=== PATIENT | female | born 1970 | race Caucasian/White ===

== ENCOUNTER 2021-03-21 13:28 | Observation (INO) | payer MEDICAID, OTHER ==
--- NOTE | 2021-03-21 13:32 | ERPHSYRPT ---
- History of Present Illness Time Seen by Provider: 03/21/21 13:32 Historian: patient, family Exam Limitations: no limitations Physician History: This a 50-year-old white female patient of Dr. Ranjith Joiner who presents with bilateral lower abdominal pain that began yesterday and worsened today. It was relatively sudden in onset. She has not really had diarrhea or vomiting. No other individuals in the family have similar symptoms. She has not had a fever. She denies chest pain. She denies shortness of breath. Patient has had a tubal ligation but no other intra-abdominal surgeries. Timing/Duration: yesterday Quality: cramping, sharpness Abdominal Pain Onset Location: RLQ, LLQ, suprapubic Pain Radiation: back Severity of Pain-Max: moderate Severity of Pain-Current: moderate Associated Symptoms: denies symptoms Previous symptoms: no prior history Allergies/Adverse Reactions: cephalexin monohydrate [From KeVidatronic] Allergy (Mild, Verified 03/21/21 13:53) Hives Home Medications: Loratadine 10 mg [Claritin 10 mg] 10 mg PO DAILY 02/04/16 [History] Hx Tetanus, Diphtheria Vaccination/Date Given: Yes (dec 18 2007) Hx Influenza Vaccination/Date Given: No Hx Pneumococcal Vaccination/Date Given: No Travel Risk - International Travel Have you traveled outside of the country in past 3 weeks: No - Coronavirus Screening Are you exhibiting any of the following symptoms?: No Close contact with a COVID-19 positive Pt in past 14-21 Days: No - Review of Systems Constitutional: No Symptoms Eyes: No Symptoms Ears, Nose, & Throat: No Symptoms Respiratory: No Symptoms Cardiac: No Symptoms Abdominal/Gastrointestinal: Abdominal Pain, No Nausea, No Vomiting, No Diarrhea, No Constipation Genitourinary Symptoms: No Symptoms Musculoskeletal: No Symptoms Skin: No Symptoms Neurological: No Symptoms Psychological: No Symptoms Endocrine: No Symptoms Hematologic/Lymphatic: No Symptoms Immunological/Allergic: No Symptoms All Other Systems: Reviewed and Negative - Past Medical History Pertinent Past Medical History: Yes Neurological History: Migraines ENT History: No Pertinent History Cardiac History: No Pertinent History Respiratory History: No Pertinent History Endocrine Medical History: No Pertinent History Musculoskeletal History: Osteoarthritis, Other GI Medical History: No Pertinent History History: No Pertinent History Psycho-Social History: No Pertinent History Female Reproductive Disorders: No Pertinent History Other Medical History: scoliosis - Past Surgical History Past Surgical History: Yes Neuro Surgical History: No Pertinent History Cardiac: No Pertinent History Respiratory: No Pertinent History Gastrointestinal: No Pertinent History Genitourinary: No Pertinent History Musculoskeletal: No Pertinent History Female Surgical History: Tubal Ligation - Social History Smoking Status: Current every day smoker How long have you smoked: 29 yrs Exposure to second hand smoke: Yes Drug Use: none Patient Lives Alone: No - Nursing Vital Signs Nursing Vital Signs: Initial Vital Signs Temperature 99.3 F 03/21/21 13:40 Pulse Rate 99 H 03/21/21 13:40 Respiratory Rate 20 03/21/21 13:40 Blood Pressure 141/78 03/21/21 13:40 O2 Sat by Pulse Oximetry 99 03/21/21 13:40 Pain Scale Pain Intensity 8 - Physical Exam General Appearance: mild distress (To moderate), alert, anxiety Eye Exam: PERRL/EOMI, eyes nml inspection Ears, Nose, Throat Exam: normal ENT inspection, moist mucous membranes Neck Exam: normal inspection, non-tender, supple, full range of motion Respiratory Exam: normal breath sounds, lungs clear, airway intact, No chest tenderness, No respiratory distress Cardiovascular Exam: regular rate/rhythm, normal heart sounds, normal peripheral pulses Gastrointestinal/Abdomen Exam: soft, normal bowel sounds, tenderness, guarding Pelvic Exam: not done Rectal Exam: not done Back Exam: normal inspection, normal range of motion, No CVA tenderness, No vertebral tenderness Extremity Exam: normal inspection, normal range of motion, pelvis stable Neurologic Exam: alert, oriented x 3, cooperative, director of institutional research II-XII nml as tested, normal mood/affect, nml cerebellar function, nml station & gait, sensation nml Skin Exam: normal color, warm, dry Lymphatic Exam: No adenopathy SpO2 Interpretation: normal O2 Delivery: Room Air - Course Nursing assessment & vital signs reviewed: Yes Ordered Tests: Active Orders 24 hr Category Date Time Status ABDOMEN AND PELVIS W/0 CONTRAS [CT] Stat Exams 03/21/21 14:08 Taken AMYLASE Stat Lab 03/21/21 14:00 Completed BLOOD CULTURE Stat Lab 03/21/21 14:45 Received CBC W DIFF Stat Lab 03/21/21 14:00 Completed CMP Stat Lab 03/21/21 14:00 Completed LIPASE Stat Lab 03/21/21 14:00 Completed Lactic Acid Stat Lab 03/21/21 13:46 Completed UA W/RFX UR CULTURE Stat Lab 03/21/21 13:46 Ordered Medication Summary Generic Name Dose Route Start Last Admin Trade Name Guillermina PRN Reason Stop Dose Admin Piperacillin Sod/Tazobactam 100 mls @ 200 mls/hr 03/21/21 15:22 Sod 3.375 gm/ Sodium Chloride IV 03/21/21 15:51 STAT ONE Discontinued Medications Generic Name Dose Route Start Last Admin Trade Name Guillermina PRN Reason Stop Dose Admin Hydromorphone HCl 1 mg 03/21/21 13:58 03/21/21 14:04 Hydromorphone 1 Mg/1ml Inj 1 Mg/Ml Syringe IV 03/21/21 13:59 1 mg STAT ONE Administration Hydromorphone HCl Confirm 03/21/21 13:59 Hydromorphone 1 Mg/1ml Inj 1 Mg/Ml Syringe Administered 03/21/21 14:00 Dose 1 mg .ROUTE .STK-MED ONE Hydromorphone HCl 1 mg 03/21/21 15:22 Hydromorphone 1 Mg/1ml Inj 1 Mg/Ml Syringe IV 03/21/21 15:23 STAT ONE Hydromorphone HCl Confirm 03/21/21 15:22 Hydromorphone 1 Mg/1ml Inj 1 Mg/Ml Syringe Administered 03/21/21 15:23 Dose 1 mg .ROUTE .STK-MED ONE Sodium Chloride 1,000 mls @ 999 mls/hr 03/21/21 13:58 03/21/21 14:04 Sodium Chloride 0.9% 1000 Ml IV 03/21/21 14:58 999 mls/hr .Q1H1M STA Administration Sodium Chloride Confirm 03/21/21 13:59 Sodium Chloride 0.9% 1000 Ml Administered 03/21/21 14:00 Dose 1,000 mls @ ud .ROUTE .STK-MED ONE Ondansetron HCl 4 mg 03/21/21 13:58 03/21/21 14:04 Ondansetron Hcl 4 Mg/2 Ml Vial IV 03/21/21 13:59 4 mg STAT ONE Administration Ondansetron HCl Confirm 03/21/21 13:59 Ondansetron Hcl 4 Mg/2 Ml Vial Administered 03/21/21 14:00 Dose 4 mg .ROUTE .STK-MED ONE Lab/Rad Data: Laboratory Result Diagrams 03/21/21 14:00 03/21/21 14:00 Laboratory Results 03/21/21 03/21/21 03/21/21 Range/Units 14:00 14:00 13:46 WBC 13.7 H (4.0-10.5) K/mm3 RBC 4.82 (4.1-5.4) M/mm3 Hgb 14.3 (12.0-16.0) gm/dl Hct 43.0 (35-47) % MCV 89.2 (78-100) fl MCH 29.7 (26-32) pg MCHC 33.3 (32-36) g/dl RDW 13.2 (11.5-14.0) % Plt Count 234 (150-450) K/mm3 MPV 11.8 H (7.5-11.0) fl Gran % 85.9 H (36.0-66.0) % Eos # (Auto) 0.03 (0-0.5) Absolute Lymphs (auto) 1.05 (1.0-4.6) Absolute Monos (auto) 0.85 (0.0-1.3) Lymphocytes % 7.6 L (24.0-44.0) % Monocytes % 6.2 (0.0-12.0) % Eosinophils % 0.2 (0.00-5.0) % Basophils % 0.1 (0.0-0.4) % Absolute Granulocytes 11.78 H (1.4-6.9) Basophils # 0.02 (0-0.4) Sodium 133 L (137-145) mmol/L Potassium 4.3 (3.5-5.1) mmol/L Chloride 104 (98-107) mmol/L Carbon Dioxide 20 L (22-30) mmol/L Anion Gap 13.0 (5-15) MEQ/L BUN 10 (7-17) mg/dL Creatinine 0.64 (0.52-1.04) mg/dL Estimated GFR > 60.0 ML/MIN Glucose 119 H (74-106) mg/dL Lactic Acid 1.1 (0.4-2.0) Calcium 9.3 (8.4-10.2) mg/dL Total Bilirubin 0.90 (0.2-1.3) mg/dL AST 21 (14-36) U/L ALT 18 (0-35) U/L Alkaline Phosphatase 101 (38-126) U/L Serum Total Protein 7.2 (6.3-8.2) g/dL Albumin 4.5 (3.5-5.0) g/dL Amylase 48 (30-110) U/L Lipase 44 (23-300) U/L - Progress Progress: pain not gone completely Progress Note: 03/21/21 15:27 CAT scan of the abdomen pelvis shows acute appendicitis with the appendix measuring approximately 12 mm in diameter. The appendix is filled with fluid. There is periappendiceal inflammation without abscess. There is cholelithiasis without acute cholecystitis. There is left nephrolithiasis without urinary tract obstruction. 03/21/21 15:33 Medical decision making: This patient has acute appendicitis. I spoke with Dr. Андрей Arshad, general surgeon, and reviewed the patient history, physical findings and results of the CAT scan. He states to go ahead and admit this patient to his service. We will obtain a Covid test prior to admission. Discussed with : Ruht Schmitz Counseled pt/family regarding: lab results, diagnosis, rad results - Departure Departure Disposition: Observation Clinical Impression: Acute appendicitis Condition: Stable Critical Care Time: No Referrals: LISHA CALLEJAS [Primary Care Provider] - Follow up/PCP as directed
[2021-03-21] MEDS ORDERED: Hydromorphone 1 mg/ml Injection IV ONE ×2 (13:58→15:22)
[2021-03-21] MEDS ORDERED: Sodium Chloride 0.9% 1000 ML 1,000 ML IV STA (13:58)
[2021-03-21] MEDS ORDERED: Zofran 4 MG/2 ML VIAL IV ONE (13:58)
[2021-03-21] MEDS ORDERED: Hydromorphone 1 mg/ml Injection ONE ×2 (13:59→15:22)
[2021-03-21] MEDS ORDERED: Sodium Chloride 0.9% 1000 ML 1,000 ML ONE (13:59)
[2021-03-21] MEDS ORDERED: Zofran 4 MG/2 ML VIAL ONE ×2 (13:59→17:57)
[2021-03-21 14:07] LABS: Absolute Neutrophil Ct (ANC) 11.78 (1.4-6.9); BASOPHIL % 0.1 % (0.0-0.4); Basophil (Absolute #) 0.02 (0-0.4); Eosinophil % 0.2 % (0.00-5.0); Eosinophil (Absolute #) 0.03 (0-0.5); Hemoglobin 14.3 gm/dl (12.0-16.0); Lymphocyte (Absolute #) 1.05 (1.0-4.6); Lymphocytes % 7.6 % (24.0-44.0); Mean Cell Volume 89.2 fl (78-100); Mean Corpuscular Hemoglobin 29.7 pg (26-32); Mean Corpuscular Hgb Concent. 33.3 g/dl (32-36); Mean Platelet Volume 11.8 fl (7.5-11.0); Monocyte (Absolute #) 0.85 (0.0-1.3); Monocytes % 6.2 % (0.0-12.0); Neutrophil % 85.9 % (36.0-66.0); Platelet Count 234 K/mm3 (150-450); Red Blood Count 4.82 M/mm3 (4.1-5.4); Red Cell Distribution Width 13.2 % (11.5-14.0); White Blood Count 13.7 K/mm3 (4.0-10.5)
[2021-03-21 14:29] LABS: ALBUMIN 4.5 g/dL (3.5-5.0); ALKALINE PHOSPHATASE 101 U/L (38-126); AMYLASE 48 U/L (30-110); BLOOD UREA NITROGEN 10 mg/dL (7-17); CHLORIDE 104 mmol/L (98-107); Calcium 9.3 mg/dL (8.4-10.2); Carbon Dioxide 20 mmol/L (22-30); Creatinine 1 0.64 mg/dL (0.52-1.04); EST GLOMERULAR FILTRATION RATE > 60.0 ML/MIN; Glucose 119 mg/dL (74-106); LIPASE 44 U/L (23-300); SGOT/AST 21 U/L (14-36); SGPT/ALT 18 U/L (0-35); SODIUM 133 mmol/L (137-145); Total Protein 7.2 g/dL (6.3-8.2)
[2021-03-21 14:30] LABS: Potassium 4.3 mmol/L (3.5-5.1)
[2021-03-21] MEDS ORDERED: Zosyn 3.375 GM Vial 3.375 GM in Sodium Chloride 100ML MINI-BAG PLUS 100 ML IV ONE (15:22)
[2021-03-21] MEDS ORDERED: Sodium Chloride 100ML MINI-BAG PLUS 100 ML IV ONE ×3 (15:25→21:35)
[2021-03-21] MEDS ORDERED: Zosyn 3.375 GM Vial IV ONE ×3 (15:25→21:35)
[2021-03-21 16:38] LABS: Appearance CLOUDY (CLEAR); Bacteria MANY /HPF (NEGATIVE); Bilirubin NEGATIVE (NEGATIVE); Blood NEGATIVE Ery/ul (0-5); Epithelial Cells FEW /HPF (FEW); Glucose NEGATIVE (NEGATIVE); Ketones TRACE (NEGATIVE); Leukocyte Esterase NEGATIVE (NEGATIVE); Mucus SLIGHT /HPF (NEGATIVE); Nitrite NEGATIVE (NEGATIVE); Protein,Urine Dip 100 (Negative); Urobilinogen 2 mg/dL (0-1)
[2021-03-21 17:21] LABS: INFLUENZA A NEGATIVE (NEGATIVE); INFLUENZA B NEGATIVE (NEGATIVE); RESPIRATORY SYNCTIAL VIRUS NEGATIVE (Negative); SARS-CoV-2 Xpert Express NEGATIVE (NEGATIVE)
[2021-03-21] MEDS ORDERED: Xylocaine-Mpf 2% 5 Ml Vial ONE (17:57)
[2021-03-21] MEDS ORDERED: Zemuron 100 MG/10 ML ONE (17:57)
[2021-03-21] MEDS ORDERED: TORAdol 30 mg Injection ONE (17:57)
[2021-03-21] MEDS ORDERED: Decadron 4 MG INJ ONE (17:57)
[2021-03-21] MEDS ORDERED: SUBLIMAZE 100 MCG/2 ML ONE (17:57)
[2021-03-21] MEDS ORDERED: BRIDION 200MG/2ML IV ONE (17:57)
[2021-03-21] MEDS ORDERED: DIPRIVAN 200 MG/20 ML IV ONE (17:57)
--- NOTE | 2021-03-21 19:14 | XRAY ---
Indication: Pain, nausea, vomiting, and bloating. Multiple contiguous axial images obtained through the abdomen and pelvis without contrast. Comparison: None Lung bases demonstrates mild pulmonary emphysema, minimal bibasilar fibrosis/scarring, 6 mm peripheral right lower lobe noncalcified nodule, and 4 mm left costophrenic angle noncalcified nodule. Heart not enlarged. Noncontrasted stomach and bowel loops appear nonobstructed. Appendix is prominent up to 11 mm diameter with mild periappendiceal stranding favoring acute appendicitis. No free fluid/air. Midabdomen demonstrates tiny mesenteric nodes with stranding favoring adenitis. Moderately distended gallbladder with at least 3 large gallstones, largest 2.8 cm. Nonobstructing 6 mm left renal calculus. Remaining liver, pancreas, spleen, adrenal glands, kidneys, ureters, bladder, and uterus are unremarkable for noncontrast exam. Minimal aortoiliac calcifications without AAA. Osseous structures intact with mild degenerative changes of the visualized thoracic spine. Impression: 1. CT findings favoring acute appendicitis. No complications. 2. Tiny mid abdomen mesenteric adenitis. 3. Distended gallbladder with gallstones. 4. Nonobstructing left renal micro-calculus. 5. Indeterminant tiny bibasilar noncalcified lung nodules. Outside comparison studies recommended if available. If not, CT chest recommended to establish Baseline with follow-up per Fleischner guidelines. Comment: Preliminary interpretation made by [facility]. No critical discrepancy.
[2021-03-21] MEDS ORDERED: Sodium Chloride 0.9% 1000 ML 1,000 ML IV SCH (19:53)
[2021-03-21] MEDS ORDERED: Zofran 4 MG/2 ML VIAL IV PRN (19:53)
[2021-03-21] MEDS ORDERED: Hydromorphone 1 mg/ml Injection IV PRN (19:53)
[2021-03-21] MEDS ORDERED: TYLENOL 325 MG PO PRN (20:11)
[2021-03-21] MEDS ORDERED: D5W/0.45NS W/ 20mEq KCl 1000 ML 1,000 ML IV SCH (20:30)
[2021-03-21] MEDS: NORCO 5/325 MG PO PRN (21:38)
[2021-03-21] MEDS: Zosyn 3.375 GM Vial 3.375 GM in Sodium Chloride 100ML MINI-BAG PLUS 100 ML IV SCH ×2 (21:40→22:32)
[2021-03-21] MEDS: MEFOXIN 1 Gm/ D5W 50 Ml** 1 G/50 ML ML IV SCH (21:57)
[2021-03-22] MEDS: NORCO 5/325 MG PO PRN ×2 (01:35→05:28)
[2021-03-22 04:45] VITALS: O2SAT 92
[2021-03-22] MEDS: MEFOXIN 1 Gm/ D5W 50 Ml** 1 G/50 ML ML IV SCH (05:49)
[2021-03-22] MEDS: Zosyn 3.375 GM Vial 3.375 GM in Sodium Chloride 100ML MINI-BAG PLUS 100 ML IV SCH (05:49)
[2021-03-22 06:53] LABS: ANION GAP 12.6 MEQ/L (5-15); BLOOD UREA NITROGEN 8 mg/dL (7-17); CHLORIDE 107 mmol/L (98-107); Calcium 8.9 mg/dL (8.4-10.2); Carbon Dioxide 21 mmol/L (22-30); Creatinine 1 0.77 mg/dL (0.52-1.04); EST GLOMERULAR FILTRATION RATE > 60.0 ML/MIN; Glucose 152 mg/dL (74-106); Potassium 4.4 mmol/L (3.5-5.1); SODIUM 136 mmol/L (137-145)
[2021-03-22 07:13] LABS: Hematocrit 39.2 % (35-47); Hemoglobin 12.6 gm/dl (12.0-16.0); Mean Cell Volume 91.2 fl (78-100); Mean Corpuscular Hemoglobin 29.3 pg (26-32); Mean Corpuscular Hgb Concent. 32.1 g/dl (32-36); Mean Platelet Volume 12.3 fl (7.5-11.0); Platelet Count 184 K/mm3 (150-450); Red Cell Distribution Width 13.1 % (11.5-14.0); White Blood Count 11.3 K/mm3 (4.0-10.5)
--- NOTE | 2021-03-22 08:20 | PCM.SSS ---
History of Present Illness - Chief Complaint Chief Complaint: appendectomy History of Present Illness: is a 50 year old female pt of mine from [facility] with seasonal allergies who was admitted through ER with acute appendicitis. WBC 13.7 with left shift and CT with acute appendicitis. She started having abd pain 2 days ago and yesterday it got much worse - 10/10 - and she was brought to ER by her spouse. She had vomiting x1. No temperature > 100. She had a laparoscopic cholecystectomy with Dr. Андрей Arshad with no complications. This morning her pain is 4/10. She is tolerating a regular house diet and would like to go home. Her IV infiltrated last night but she got two doses of cefoxetin and zosyn prior to that. I spoke with Dr. Arshad's nurse (he is in surgery) and he agreed that pt can go home without any antibiotics. F/u with me in 1 week. - Review of Systems Abdominal/Gastrointestinal: Abdominal Pain, Vomiting All Other Systems: Reviewed and Negative Medications & Allergies Home Medications: Home Medication List Loratadine 10 mg [Claritin 10 mg] 10 mg PO DAILY 02/04/16 [History Confirmed 03/21/21] Allergies/Adverse Reactions: Allergies Allergy/AdvReac Type Severity Reaction Status Date / Time cephalexin monohydrate Allergy Mild Hives Verified 03/21/21 13:53 [From Keflex] - Past Medical History Past Medical History: Yes Neurological History: Migraines ENT History: No Pertinent History Cardiac History: No Pertinent History Respiratory History: No Pertinent History Endocrine Medical History: No Pertinent History Musculoskelatal History: Fractures, Other GI Medical History: No Pertinent History History: No Pertinent History Pyscho-Social History: Other Reproductive Disorders: No Pertinent History Comment: scoliosis, seasonal affective disorder - Female History Hx Last Menstrual Period: tubal 1998 Are you now?: No - Past Surgical History Past Surgical History: Yes Neuro Surgical History: No Pertinent History Cardiac History: No Pertinent History Respiratory Surgery: No Pertinent History GI Surgical History: No Pertinent History Genitourinary Surgical Hx: No Pertinent History Musculskeletal Surgical Hx: No Pertinent History Female Surgical History: Tubal Ligation - Social History Smoking Status: Current every day smoker How long have you smoked: 34 Exposure to second hand smoke: Yes Alcohol: None Drug Use: none - Physical Exam Vital Signs: Vital Signs - 24 hr Temp Pulse Resp BP Pulse Ox 12/27/21 04:00 98.8 F 83 20 123/68 92 L 03/22/21 00:42 112/66 03/22/21 00:36 99.5 F 86 111/61 03/22/21 00:00 97.1 F 78 19 109/59 96 03/21/21 23:30 84 20 115/63 03/21/21 23:00 112/66 03/21/21 22:30 86 117/56 03/21/21 22:00 92 H 111/63 03/21/21 21:45 86 123/68 03/21/21 21:15 91 H 119/59 03/21/21 21:00 98.6 F 89 20 122/58 96 03/21/21 20:30 98.8 F 78 18 129/66 95 03/21/21 20:07 98.8 F 78 18 129/66 93 L 03/21/21 16:00 99.3 F 82 18 138/86 98 03/21/21 15:28 99.3 F 82 16 122/71 97 03/21/21 15:00 99.3 F 82 16 122/71 97 03/21/21 14:33 99.3 F 89 18 149/71 97 03/21/21 13:40 99.3 F 99 H 20 141/78 99 General Appearance: no apparent distress, alert Neurologic Exam: oriented x 3, cooperative Eye Exam: eyes nml inspection Ears, Nose, Throat Exam: moist mucous membranes Neck Exam: normal inspection, non-tender, No lymphadenopathy Respiratory Exam: normal breath sounds, lungs clear, No crackles/rales, No rhonchi, No wheezing Cardiovascular Exam: regular rate/rhythm, normal heart sounds, No murmur Gastrointestinal/Abdomen Exam: soft, normal bowel sounds, tenderness (mild diffuse), other (dressings are c/d/i), No distention, No mass, No guarding, No rebound Extremity Exam: normal inspection, No pedal edema, No swelling Skin Exam: normal color, warm, dry, No rash Results - Labs Lab/Micro Results: Lab Results-Last 24 Hours 03/21/21 03/21/21 03/21/21 Range/Units 13:46 13:46 14:00 WBC 13.7 H (4.0-10.5) K/mm3 RBC 4.82 (4.1-5.4) M/mm3 Hgb 14.3 (12.0-16.0) gm/dl Hct 43.0 (35-47) % MCV 89.2 (78-100) fl MCH 29.7 (26-32) pg MCHC 33.3 (32-36) g/dl RDW 13.2 (11.5-14.0) % Plt Count 234 (150-450) K/mm3 MPV 11.8 H (7.5-11.0) fl Gran % 85.9 H (36.0-66.0) % Eos # (Auto) 0.03 (0-0.5) Absolute Lymphs (auto) 1.05 (1.0-4.6) Absolute Monos (auto) 0.85 (0.0-1.3) Lymphocytes % 7.6 L (24.0-44.0) % Monocytes % 6.2 (0.0-12.0) % Eosinophils % 0.2 (0.00-5.0) % Basophils % 0.1 (0.0-0.4) % Absolute Granulocytes 11.78 H (1.4-6.9) Basophils # 0.02 (0-0.4) Sodium (137-145) mmol/L Potassium (3.5-5.1) mmol/L Chloride (98-107) mmol/L Carbon Dioxide (22-30) mmol/L Anion Gap (5-15) MEQ/L BUN (7-17) mg/dL Creatinine (0.52-1.04) mg/dL Estimated GFR ML/MIN Glucose (74-106) mg/dL Lactic Acid 1.1 (0.4-2.0) Calcium (8.4-10.2) mg/dL Total Bilirubin (0.2-1.3) mg/dL AST (14-36) U/L ALT (0-35) U/L Alkaline Phosphatase (38-126) U/L Serum Total Protein (6.3-8.2) g/dL Albumin (3.5-5.0) g/dL Amylase (30-110) U/L Lipase (23-300) U/L Urine Color YELLOW (YELLOW) Urine Appearance CLOUDY (CLEAR) Urine pH 7.0 (5-6) Ur Specific [place] 1.020 (1.005-1.025) Urine Protein 100 (Negative) Urine Ketones TRACE (NEGATIVE) Urine Blood NEGATIVE (0-5) Miko/ul Urine Nitrite NEGATIVE (NEGATIVE) Urine Bilirubin NEGATIVE (NEGATIVE) Urine Urobilinogen 2 (0-1) mg/dL Ur Leukocyte Esterase NEGATIVE (NEGATIVE) Urine WBC (Auto) 3-5 (0-5) /HPF Urine RBC (Auto) 3-5 (0-2) /HPF U Epithel Cells (Auto) FEW (FEW) /HPF Urine Bacteria (Auto) MANY (NEGATIVE) /HPF Urine Mucus (Auto) SLIGHT (NEGATIVE) /HPF Urine Culture Reflexed YES (NO) Urine Glucose NEGATIVE (NEGATIVE) mg/dL Influenza Type A Ag (NEGATIVE) Influenza Type B Ag (NEGATIVE) RSV (PCR) (Negative) SARS-CoV-2 (PCR) (NEGATIVE) 03/21/21 03/21/21 03/22/21 Range/Units 14:00 16:35 05:00 WBC 11.3 H (4.0-10.5) K/mm3 RBC 4.30 (4.1-5.4) M/mm3 Hgb 12.6 (12.0-16.0) gm/dl Hct 39.2 (35-47) % MCV 91.2 (78-100) fl MCH 29.3 (26-32) pg MCHC 32.1 (32-36) g/dl RDW 13.1 (11.5-14.0) % Plt Count 184 (150-450) K/mm3 MPV 12.3 H (7.5-11.0) fl Gran % (36.0-66.0) % Eos # (Auto) (0-0.5) Absolute Lymphs (auto) (1.0-4.6) Absolute Monos (auto) (0.0-1.3) Lymphocytes % (24.0-44.0) % Monocytes % (0.0-12.0) % Eosinophils % (0.00-5.0) % Basophils % (0.0-0.4) % Absolute Granulocytes (1.4-6.9) Basophils # (0-0.4) Sodium 133 L (137-145) mmol/L Potassium 4.3 (3.5-5.1) mmol/L Chloride 104 (98-107) mmol/L Carbon Dioxide 20 L (22-30) mmol/L Anion Gap 13.0 (5-15) MEQ/L BUN 10 (7-17) mg/dL Creatinine 0.64 (0.52-1.04) mg/dL Estimated GFR > 60.0 ML/MIN Glucose 119 H (74-106) mg/dL Lactic Acid (0.4-2.0) Calcium 9.3 (8.4-10.2) mg/dL Total Bilirubin 0.90 (0.2-1.3) mg/dL AST 21 (14-36) U/L ALT 18 (0-35) U/L Alkaline Phosphatase 101 (38-126) U/L Serum Total Protein 7.2 (6.3-8.2) g/dL Albumin 4.5 (3.5-5.0) g/dL Amylase 48 (30-110) U/L Lipase 44 (23-300) U/L Urine Color (YELLOW) Urine Appearance (CLEAR) Urine pH (5-6) Ur Specific [place] (1.005-1.025) Urine Protein (Negative) Urine Ketones (NEGATIVE) Urine Blood (0-5) Miko/ul Urine Nitrite (NEGATIVE) Urine Bilirubin (NEGATIVE) Urine Urobilinogen (0-1) mg/dL Ur Leukocyte Esterase (NEGATIVE) Urine WBC (Auto) (0-5) /HPF Urine RBC (Auto) (0-2) /HPF U Epithel Cells (Auto) (FEW) /HPF Urine Bacteria (Auto) (NEGATIVE) /HPF Urine Mucus (Auto) (NEGATIVE) /HPF Urine Culture Reflexed (NO) Urine Glucose (NEGATIVE) mg/dL Influenza Type A Ag NEGATIVE (NEGATIVE) Influenza Type B Ag NEGATIVE (NEGATIVE) RSV (PCR) NEGATIVE (Negative) SARS-CoV-2 (PCR) NEGATIVE (NEGATIVE) 03/22/21 Range/Units 05:00 WBC (4.0-10.5) K/mm3 RBC (4.1-5.4) M/mm3 Hgb (12.0-16.0) gm/dl Hct (35-47) % MCV (78-100) fl MCH (26-32) pg MCHC (32-36) g/dl RDW (11.5-14.0) % Plt Count (150-450) K/mm3 MPV (7.5-11.0) fl Gran % (36.0-66.0) % Eos # (Auto) (0-0.5) Absolute Lymphs (auto) (1.0-4.6) Absolute Monos (auto) (0.0-1.3) Lymphocytes % (24.0-44.0) % Monocytes % (0.0-12.0) % Eosinophils % (0.00-5.0) % Basophils % (0.0-0.4) % Absolute Granulocytes (1.4-6.9) Basophils # (0-0.4) Sodium 136 L (137-145) mmol/L Potassium 4.4 (3.5-5.1) mmol/L Chloride 107 (98-107) mmol/L Carbon Dioxide 21 L (22-30) mmol/L Anion Gap 12.6 (5-15) MEQ/L BUN 8 (7-17) mg/dL Creatinine 0.77 (0.52-1.04) mg/dL Estimated GFR > 60.0 ML/MIN Glucose 152 H (74-106) mg/dL Lactic Acid (0.4-2.0) Calcium 8.9 (8.4-10.2) mg/dL Total Bilirubin (0.2-1.3) mg/dL AST (14-36) U/L ALT (0-35) U/L Alkaline Phosphatase (38-126) U/L Serum Total Protein (6.3-8.2) g/dL Albumin (3.5-5.0) g/dL Amylase (30-110) U/L Lipase (23-300) U/L Urine Color (YELLOW) Urine Appearance (CLEAR) Urine pH (5-6) Ur Specific [place] (1.005-1.025) Urine Protein (Negative) Urine Ketones (NEGATIVE) Urine Blood (0-5) Miko/ul Urine Nitrite (NEGATIVE) Urine Bilirubin (NEGATIVE) Urine Urobilinogen (0-1) mg/dL Ur Leukocyte Esterase (NEGATIVE) Urine WBC (Auto) (0-5) /HPF Urine RBC (Auto) (0-2) /HPF U Epithel Cells (Auto) (FEW) /HPF Urine Bacteria (Auto) (NEGATIVE) /HPF Urine Mucus (Auto) (NEGATIVE) /HPF Urine Culture Reflexed (NO) Urine Glucose (NEGATIVE) mg/dL Influenza Type A Ag (NEGATIVE) Influenza Type B Ag (NEGATIVE) RSV (PCR) (Negative) SARS-CoV-2 (PCR) (NEGATIVE) - Radiology Impressions Radiology Exams & Impressions: Radiology Procedures Category Date Time Status ABDOMEN AND PELVIS W/0 CONTRAS [CT] Stat Exams 03/21/21 14:08 Completed Assessment/Plan (1) Acute appendicitis Current Visit: Yes Status: Acute Qualifiers: Acute appendicitis type: with localized peritonitis Appendicitis gangrene presence: without gangrene Appendicitis perforation presence: without perforation Appendicitis abscess presence: without abscess Qualified Code(s): K35.30 - Acute appendicitis with localized peritonitis, without perforation or gangrene Assessment & Plan: She is doing great. POD #1 - will have her f/u in 1 week. F/u with Dr. Arshad as directed. Code(s): K35.80 - UNSPECIFIED ACUTE APPENDICITIS (2) Cholelithiases Current Visit: Yes Status: Chronic Qualifiers: Cholelithiasis location: gallbladder Cholecystitis presence: without cholecystitis Biliary obstruction: without biliary obstruction Qualified Code(s): K80.20 - Calculus of gallbladder without cholecystitis without obstruction Assessment & Plan: Will d/w pt, will want to consider surgery if she has abd pain consistent with cholecystitis. (3) Nephrolithiasis Current Visit: Yes Status: Chronic Assessment & Plan: On CT - await final report to characterize - but non-obstructing. on L. Hospital Summary - Hospital Course Hospital Course: Pt is 50 yo female admitted through ER with appendicitis. Laparascopic cholecystectomy done and pt is tolerating regular diet and pain is controlled. Home today. - Vitals & Intake/Output Vital Signs: Vital Signs Temperature 98.8 F 03/22/21 04:00 Pulse Rate 83 03/22/21 04:00 Respiratory Rate 20 03/22/21 04:00 Blood Pressure 123/68 03/22/21 04:00 O2 Sat by Pulse Oximetry 92 L 03/22/21 04:00 Intake & Output: Intake & Output 03/19/21 03/20/21 03/21/21 03/22/21 11:59 11:59 11:59 11:59 Weight 115.6 kg - Lab Result Diagrams: 03/22/21 05:00 03/22/21 05:00 Lab Results-Last 24 Hrs: Lab Results-Last 24 Hours 03/21/21 03/21/21 03/21/21 Range/Units 13:46 13:46 14:00 WBC 13.7 H (4.0-10.5) K/mm3 RBC 4.82 (4.1-5.4) M/mm3 Hgb 14.3 (12.0-16.0) gm/dl Hct 43.0 (35-47) % MCV 89.2 (78-100) fl MCH 29.7 (26-32) pg MCHC 33.3 (32-36) g/dl RDW 13.2 (11.5-14.0) % Plt Count 234 (150-450) K/mm3 MPV 11.8 H (7.5-11.0) fl Gran % 85.9 H (36.0-66.0) % Eos # (Auto) 0.03 (0-0.5) Absolute Lymphs (auto) 1.05 (1.0-4.6) Absolute Monos (auto) 0.85 (0.0-1.3) Lymphocytes % 7.6 L (24.0-44.0) % Monocytes % 6.2 (0.0-12.0) % Eosinophils % 0.2 (0.00-5.0) % Basophils % 0.1 (0.0-0.4) % Absolute Granulocytes 11.78 H (1.4-6.9) Basophils # 0.02 (0-0.4) Sodium (137-145) mmol/L Potassium (3.5-5.1) mmol/L Chloride (98-107) mmol/L Carbon Dioxide (22-30) mmol/L Anion Gap (5-15) MEQ/L BUN (7-17) mg/dL Creatinine (0.52-1.04) mg/dL Estimated GFR ML/MIN Glucose (74-106) mg/dL Lactic Acid 1.1 (0.4-2.0) Calcium (8.4-10.2) mg/dL Total Bilirubin (0.2-1.3) mg/dL AST (14-36) U/L ALT (0-35) U/L Alkaline Phosphatase (38-126) U/L Serum Total Protein (6.3-8.2) g/dL Albumin (3.5-5.0) g/dL Amylase (30-110) U/L Lipase (23-300) U/L Urine Color YELLOW (YELLOW) Urine Appearance CLOUDY (CLEAR) Urine pH 7.0 (5-6) Ur Specific [place] 1.020 (1.005-1.025) Urine Protein 100 (Negative) Urine Ketones TRACE (NEGATIVE) Urine Blood NEGATIVE (0-5) Miko/ul Urine Nitrite NEGATIVE (NEGATIVE) Urine Bilirubin NEGATIVE (NEGATIVE) Urine Urobilinogen 2 (0-1) mg/dL Ur Leukocyte Esterase NEGATIVE (NEGATIVE) Urine WBC (Auto) 3-5 (0-5) /HPF Urine RBC (Auto) 3-5 (0-2) /HPF U Epithel Cells (Auto) FEW (FEW) /HPF Urine Bacteria (Auto) MANY (NEGATIVE) /HPF Urine Mucus (Auto) SLIGHT (NEGATIVE) /HPF Urine Culture Reflexed YES (NO) Urine Glucose NEGATIVE (NEGATIVE) mg/dL Influenza Type A Ag (NEGATIVE) Influenza Type B Ag (NEGATIVE) RSV (PCR) (Negative) SARS-CoV-2 (PCR) (NEGATIVE) 03/21/21 03/21/21 03/22/21 Range/Units 14:00 16:35 05:00 WBC 11.3 H (4.0-10.5) K/mm3 RBC 4.30 (4.1-5.4) M/mm3 Hgb 12.6 (12.0-16.0) gm/dl Hct 39.2 (35-47) % MCV 91.2 (78-100) fl MCH 29.3 (26-32) pg MCHC 32.1 (32-36) g/dl RDW 13.1 (11.5-14.0) % Plt Count 184 (150-450) K/mm3 MPV 12.3 H (7.5-11.0) fl Gran % (36.0-66.0) % Eos # (Auto) (0-0.5) Absolute Lymphs (auto) (1.0-4.6) Absolute Monos (auto) (0.0-1.3) Lymphocytes % (24.0-44.0) % Monocytes % (0.0-12.0) % Eosinophils % (0.00-5.0) % Basophils % (0.0-0.4) % Absolute Granulocytes (1.4-6.9) Basophils # (0-0.4) Sodium 133 L (137-145) mmol/L Potassium 4.3 (3.5-5.1) mmol/L Chloride 104 (98-107) mmol/L Carbon Dioxide 20 L (22-30) mmol/L Anion Gap 13.0 (5-15) MEQ/L BUN 10 (7-17) mg/dL Creatinine 0.64 (0.52-1.04) mg/dL Estimated GFR > 60.0 ML/MIN Glucose 119 H (74-106) mg/dL Lactic Acid (0.4-2.0) Calcium 9.3 (8.4-10.2) mg/dL Total Bilirubin 0.90 (0.2-1.3) mg/dL AST 21 (14-36) U/L ALT 18 (0-35) U/L Alkaline Phosphatase 101 (38-126) U/L Serum Total Protein 7.2 (6.3-8.2) g/dL Albumin 4.5 (3.5-5.0) g/dL Amylase 48 (30-110) U/L Lipase 44 (23-300) U/L Urine Color (YELLOW) Urine Appearance (CLEAR) Urine pH (5-6) Ur Specific [place] (1.005-1.025) Urine Protein (Negative) Urine Ketones (NEGATIVE) Urine Blood (0-5) Miko/ul Urine Nitrite (NEGATIVE) Urine Bilirubin (NEGATIVE) Urine Urobilinogen (0-1) mg/dL Ur Leukocyte Esterase (NEGATIVE) Urine WBC (Auto) (0-5) /HPF Urine RBC (Auto) (0-2) /HPF U Epithel Cells (Auto) (FEW) /HPF Urine Bacteria (Auto) (NEGATIVE) /HPF Urine Mucus (Auto) (NEGATIVE) /HPF Urine Culture Reflexed (NO) Urine Glucose (NEGATIVE) mg/dL Influenza Type A Ag NEGATIVE (NEGATIVE) Influenza Type B Ag NEGATIVE (NEGATIVE) RSV (PCR) NEGATIVE (Negative) SARS-CoV-2 (PCR) NEGATIVE (NEGATIVE) 03/22/21 Range/Units 05:00 WBC (4.0-10.5) K/mm3 RBC (4.1-5.4) M/mm3 Hgb (12.0-16.0) gm/dl Hct (35-47) % MCV (78-100) fl MCH (26-32) pg MCHC (32-36) g/dl RDW (11.5-14.0) % Plt Count (150-450) K/mm3 MPV (7.5-11.0) fl Gran % (36.0-66.0) % Eos # (Auto) (0-0.5) Absolute Lymphs (auto) (1.0-4.6) Absolute Monos (auto) (0.0-1.3) Lymphocytes % (24.0-44.0) % Monocytes % (0.0-12.0) % Eosinophils % (0.00-5.0) % Basophils % (0.0-0.4) % Absolute Granulocytes (1.4-6.9) Basophils # (0-0.4) Sodium 136 L (137-145) mmol/L Potassium 4.4 (3.5-5.1) mmol/L Chloride 107 (98-107) mmol/L Carbon Dioxide 21 L (22-30) mmol/L Anion Gap 12.6 (5-15) MEQ/L BUN 8 (7-17) mg/dL Creatinine 0.77 (0.52-1.04) mg/dL Estimated GFR > 60.0 ML/MIN Glucose 152 H (74-106) mg/dL Lactic Acid (0.4-2.0) Calcium 8.9 (8.4-10.2) mg/dL Total Bilirubin (0.2-1.3) mg/dL AST (14-36) U/L ALT (0-35) U/L Alkaline Phosphatase (38-126) U/L Serum Total Protein (6.3-8.2) g/dL Albumin (3.5-5.0) g/dL Amylase (30-110) U/L Lipase (23-300) U/L Urine Color (YELLOW) Urine Appearance (CLEAR) Urine pH (5-6) Ur Specific [place] (1.005-1.025) Urine Protein (Negative) Urine Ketones (NEGATIVE) Urine Blood (0-5) Miko/ul Urine Nitrite (NEGATIVE) Urine Bilirubin (NEGATIVE) Urine Urobilinogen (0-1) mg/dL Ur Leukocyte Esterase (NEGATIVE) Urine WBC (Auto) (0-5) /HPF Urine RBC (Auto) (0-2) /HPF U Epithel Cells (Auto) (FEW) /HPF Urine Bacteria (Auto) (NEGATIVE) /HPF Urine Mucus (Auto) (NEGATIVE) /HPF Urine Culture Reflexed (NO) Urine Glucose (NEGATIVE) mg/dL Influenza Type A Ag (NEGATIVE) Influenza Type B Ag (NEGATIVE) RSV (PCR) (Negative) SARS-CoV-2 (PCR) (NEGATIVE) - Radiology Exams Ordered Rad Exams-Entire Visit: Radiology Procedures Category Date Time Status ABDOMEN AND PELVIS W/0 CONTRAS [CT] Stat Exams 03/21/21 14:08 Completed - Discharge Disposition: Home, Self-Care Condition: Good Prescriptions: Continue Loratadine 10 mg [Claritin 10 mg] 10 mg PO DAILY Follow up with: LISHA CALLEJAS [Primary Care Provider] -
[2021-03-22 08:46] VITALS: BP 110/62; PULSE 80
[2021-03-22] MEDS ORDERED: CLARITIN 10 MG PO SCH (10:00)
[2021-03-22] MEDS ORDERED: ENOXAPARIN SODIUM SQ SCH (10:00)
--- NOTE | 2021-03-22 15:10 | HP ---
DATE OF SURGERY: 03/21/2021 HISTORY OF PRESENT ILLNESS: A 50-year-old with acute appendicitis admitted straight from the emergency room to the OR. She has had 24 hours of abdominal pain. She is wadded up in a ball. She is clearly having discomfort at this time. She has had nausea. No vomiting. Pain is substantial to the right lower quadrant. She has not had any previous episodes like this. PAST MEDICAL HISTORY: ALLERGIES: CEPHALEXAN MONOHYDRATE. MEDICATIONS: Loratadine. PAST SURGICAL HISTORY: None recent. SOCIAL HISTORY: Negative. FAMILY HISTORY: Negative. REVIEW OF SYSTEMS: CVS: Negative. PULMONARY: Negative. GI: Present illness. : Negative. PHYSICAL EXAMINATION: Mildly obese. Vital signs normal. CHEST: Clear. COR: Regular. ABDOMEN: The patient is staying in a position of flexion. Abdomen is tender. LAB DATA AND TESTS: White count elevated. CT positive. IMPRESSION: Acute appendicitis. PLAN: Laparoscopic appendectomy.
--- NOTE | 2021-03-22 15:22 | OP ---
SURGERY DATE/TIME: 03/21/20211813 PREOPERATIVE DIAGNOSIS: Acute appendicitis. POSTOPERATIVE DIAGNOSIS: Acute appendicitis. PROCEDURE: Laparoscopic appendectomy. SURGEON: Андрей Arshad M.D. ANESTHESIA: General endotracheal tube. COMPLICATIONS: None. CONDITION: Stable. INDICATION: A patient with clinical and CT proven appendicitis. DESCRIPTION OF PROCEDURE: Taken to surgery. General anesthetic. Routine prep and drape. She had a previous tubal ligation. Veress needle was inserted here. Insufflation pressure 14. A build in spot in right upper quadrant with a 5 port inserted nicely. There was a little bit of omentum stuck on the umbilicus but no bowel. A 12 port was placed for visualization. A 5 was placed right lower quadrant. The cecum itself was not mobile. The uterus was satisfactory. The right tubal ligation uterine end was visible. The appendix was almost laying on it. Half of appendix was off the tip. The base was seen over in the right lower quadrant. The ports were obtained and sort of buried down against common iliac artery and ureter. The base was taken. The tip was mobilized with LigaSure. At this time the mesoappendix was able to be taken and a little distal with the stapler. Appendix was taken with the LigaSure. Base already been taken off with stapler and looked excellent. No violation occurred. Placed in a condom bag and removed. Field was totally dry. Hole closure device was used with 0 Vicryl. Skin closed with 4-0 Vicryl, Steri-Strips. The patient tolerated the procedure satisfactorily. No family.
== END 2021-03-22 09:53 | disposition home or self-care (01) ==
LOC: ED 13:28 → MED SURG 19:51
PROVIDERS: ADMIT Surgery; ATTEND Family Medicine
DX: K35.30 Acute appendicitis with localized peritonitis, without perforation or gangrene (principal); K80.20 Calculus of gallbladder without cholecystitis without obstruction; N20.0 Calculus of kidney; F17.200 Nicotine dependence, unspecified, uncomplicated; Z79.899 Other long term (current) drug therapy; Z20.828 Contact with and (suspected) exposure to other viral communicable diseases
CPT/HCPCS: 0241U; 36415; 44970; 74176; 80048; 80053; 81001; 82150; 83605; 83690; 85025; 85027; 87040; 87086; 96374; 96375; 96376; 99284; G0378; J0694; J1100; J1170; J1885; J2405; J2704; J3010; A9270-GY

== ENCOUNTER 2022-06-30 01:51 | Emergency (ER) | payer MEDICAID ==
[2022-06-30] MEDS ORDERED: Zofran 4 MG/2 ML VIAL IV ONE ×2 (02:19→04:02)
[2022-06-30] MEDS ORDERED: MORPHINE SULFATE 4 MG INJ IV ONE (02:19)
[2022-06-30] MEDS ORDERED: Sodium Chloride 0.9% 1000 ML 1,000 ML ONE (02:23)
[2022-06-30] MEDS ORDERED: Zofran 4 MG/2 ML VIAL ONE ×2 (02:23→04:13)
[2022-06-30] MEDS ORDERED: MORPHINE SULFATE 4 MG INJ ONE (02:23)
[2022-06-30 02:28] VITALS: O2SAT 98
[2022-06-30 02:29] LABS: Absolute Neutrophil Ct (ANC) 6.21 x10^3/uL (1.4-6.9); BASOPHIL % 0.5 % (0.0-0.4); Basophil (Absolute #) 0.04 x10^3/uL (0-0.4); Eosinophil (Absolute #) 0.17 x10^3/uL (0-0.5); Hematocrit 39.7 % (35-47); Hemoglobin 12.9 g/dL (12.0-16.0); IMMATURE GRAN # 0.04 x10^3u/L (0.00-0.03); IMMATURE GRAN % 0.5 % (0.00-0.4); Lymphocyte (Absolute #) 1.51 x10^3/uL (1.0-4.6); Lymphocytes % 17.6 % (24.0-44.0); Mean Cell Volume 89.4 fL (78-100); Mean Corpuscular Hemoglobin 29.1 pg (26-32); Mean Corpuscular Hgb Concent. 32.5 g/dL (32-36); Mean Platelet Volume 11.4 fL (7.5-11.0); Neutrophil % 72.4 % (36.0-66.0); Platelet Count 226 x10^3/uL (150-450); Red Blood Count 4.44 x10^6/uL (4.1-5.4); Red Cell Distribution Width 12.8 % (11.5-14.0); White Blood Count 8.6 x10^3/uL (4.0-10.5)
[2022-06-30] MEDS ORDERED: Sodium Chloride 0.9% 1000 ML 1,000 ML IV SCH (02:30)
[2022-06-30 02:42] LABS: ALBUMIN 4.3 g/dL (3.5-5.0); ALKALINE PHOSPHATASE 102 U/L (38-126); ANION GAP 13.7 MEQ/L (5-15); BLOOD UREA NITROGEN 14 mg/dL (7-17); CHLORIDE 106 mmol/L (98-107); Carbon Dioxide 24 mmol/L (22-30); Creatinine 1 0.74 mg/dL (0.52-1.04); EST GLOMERULAR FILTRATION RATE > 60.0 ML/MIN; Glucose 138 mg/dL (74-106); Potassium 4.2 mmol/L (3.5-5.1); SGOT/AST 34 U/L (14-36); SGPT/ALT 38 U/L (0-35); SODIUM 140 mmol/L (137-145); Total Protein 7.2 g/dL (6.3-8.2)
--- NOTE | 2022-06-30 02:46 | ERPHSYRPT ---
- History of Present Illness Time Seen by Provider: 06/30/22 02:34 Historian: patient Exam Limitations: no limitations Patient Subjective Stated Complaint: pt states when she laid down to go to bed tonight she began having pain in her epigastric area. pain got worse and pt states she has pain in her back and around her ribs now. rates pain 9/10 Triage Nursing Assessment: pt alert and oriented, answers questions approp. pt back to room per wheelchair and transfers to stretcher with assist of 1. respirations nonlabored. skin warm and dry. heart rate 94 sinus rhythm. Physician History: Patient is a 51-year-old female presents to our ED for evaluation of epigastric and right upper quadrant pain. Patient has a history of cholelithiasis. Patient states she had a fatty meal this evening prior to going to bed. Malika ent's pain started while in bed. Pain described as an ache that is localized to the right upper quadrant however she occasionally feels shooting sensation across her flank into her back area. No trauma. No fever. No nausea vomiting or diaphoresis. Symptoms are moderate in intensity. Patient voices no other complaints or concerns at this time. Portions of this note were created with voice recognition technology. There may be grammatical, spelling, punctuation or sound alike errors Timing/Duration: today Activities at Onset: none Quality: aching Abdominal Pain Onset Location: RUQ Pain Radiation: flank Severity of Pain-Max: moderate Severity of Pain-Current: mild Modifying Factors: Improves With: nothing Associated Symptoms: denies symptoms Previous symptoms: no prior history Allergies/Adverse Reactions: cephalexin monohydrate [From Keflex] Allergy (Mild, Verified 06/30/22 02:36) Hives Home Medications: Loratadine 10 mg [Claritin 10 mg] 10 mg PO DAILY 02/04/16 [History] Hx Tetanus, Diphtheria Vaccination/Date Given: Yes Hx Influenza Vaccination/Date Given: No Hx Pneumococcal Vaccination/Date Given: No Immunizations Up to Date: Yes Travel Risk - International Travel Have you traveled outside of the country in past 3 weeks: No - Coronavirus Screening Are you exhibiting any of the following symptoms?: No Close contact with a COVID-19 positive Pt in past 14-21 Days: No - Vaccine Status Have you recieved a Covid-19 vaccination: No - Review of Systems Constitutional: No Symptoms, No Fever, No Chills Eyes: No Symptoms Ears, Nose, & Throat: No Symptoms Respiratory: No Symptoms, No Cough, No Dyspnea Cardiac: No Symptoms, No Chest Pain, No Edema, No Syncope Abdominal/Gastrointestinal: No Symptoms, No Abdominal Pain, No Nausea, No Vomiting, No Diarrhea Genitourinary Symptoms: No Symptoms, No Dysuria Musculoskeletal: No Symptoms, No Back Pain, No Neck Pain Skin: No Symptoms, No Rash Neurological: No Symptoms, No Dizziness, No Focal Weakness, No Sensory Changes Psychological: No Symptoms Endocrine: No Symptoms Hematologic/Lymphatic: No Symptoms Immunological/Allergic: No Symptoms All Other Systems: Reviewed and Negative - Past Medical History Pertinent Past Medical History: Yes Neurological History: Migraines ENT History: No Pertinent History Cardiac History: Congestive Heart Failure, Hypertension Respiratory History: No Pertinent History Endocrine Medical History: No Pertinent History Musculoskeletal History: Fractures, Other GI Medical History: No Pertinent History History: No Pertinent History Psycho-Social History: Other Female Reproductive Disorders: No Pertinent History Other Medical History: scoliosis, seasonal affective disorder - Past Surgical History Past Surgical History: Yes Neuro Surgical History: No Pertinent History Cardiac: No Pertinent History Respiratory: No Pertinent History Gastrointestinal: Appendectomy Genitourinary: No Pertinent History Musculoskeletal: No Pertinent History Female Surgical History: Tubal Ligation - Social History Smoking Status: Former smoker How long have you smoked: 34 Exposure to second hand smoke: No Drug Use: none Patient Lives Alone: No - Female History Hx Now: No - Nursing Vital Signs Nursing Vital Signs: Initial Vital Signs Temperature 98.7 F 06/30/22 01:59 Pulse Rate 90 06/30/22 01:59 Respiratory Rate 20 06/30/22 01:59 Blood Pressure 131/102 06/30/22 01:59 O2 Sat by Pulse Oximetry 99 06/30/22 01:59 Pain Scale Pain Intensity 2 - Physical Exam General Appearance: no apparent distress, alert Eye Exam: PERRL/EOMI, eyes nml inspection Ears, Nose, Throat Exam: normal ENT inspection, pharynx normal, moist mucous membranes Neck Exam: normal inspection, non-tender, supple, full range of motion Respiratory Exam: normal breath sounds, lungs clear, airway intact, No respiratory distress Cardiovascular Exam: regular rate/rhythm, normal heart sounds, normal peripheral pulses Gastrointestinal/Abdomen Exam: soft, No tenderness, No mass Back Exam: normal inspection, normal range of motion, No CVA tenderness, No vertebral tenderness Extremity Exam: normal inspection, normal range of motion, pelvis stable Neurologic Exam: alert, oriented x 3, cooperative, normal mood/affect, nml cerebellar function, sensation nml, No motor deficits Skin Exam: normal color, warm, dry Lymphatic Exam: No adenopathy SpO2 Interpretation: normal SpO2: 98 O2 Delivery: Room Air - Course Nursing assessment & vital signs reviewed: Yes EKG Interpreted by Me: RATE (90), Sinus Rhythm, NORMAL AXIS, NORMAL INTERVALS - CT Exams Abdomen/Pelvis CT Interpretation: Tele-radiologist Report (Lung nodule cholelithiasis, right adrenal gland nodule, nephrolithiasis, hydropic gallbladder,) Ordered Tests: Active Orders 24 hr Category Date Time Status Operator Electronic Warfare STAT Care 06/30/22 02:17 Active EKG-ER Only STAT Care 06/30/22 02:17 Active IV Insertion STAT Care 06/30/22 02:17 Active Pulse Oximetry (ED) STAT Care 06/30/22 02:17 Active ABDOMEN AND PELVIS W/0 CONTRAS [CT] Stat Exams 06/30/22 02:18 Completed CBC W DIFF Stat Lab 06/30/22 02:26 Completed CMP Stat Lab 06/30/22 02:26 Completed NT PRO BNPII Stat Lab 06/30/22 02:26 Completed TROPONIN Q4H Lab 06/30/22 02:26 Completed TROPONIN Q4H Lab 06/30/22 06:30 Ordered TROPONIN Q4H Lab 06/30/22 10:30 Ordered Medication Summary Generic Name Dose Route Start Last Admin Trade Name Freq PRN Reason Stop Dose Admin Hydrocodone Bitart/Acetaminophen 4 tab 06/30/22 04:35 Hydrocodone/Apap 5/325 1 Tab Tablet PO 06/30/22 04:36 SENT HOME W/ PATIENT ONE Sodium Chloride 1,000 mls @ 100 mls/hr 06/30/22 02:30 06/30/22 02:26 Sodium Chloride 0.9% 1000 Ml IV 07/30/22 02:29 100 mls/hr .Q10H ERIN Administration Discontinued Medications Generic Name Dose Route Start Last Admin Trade Name Freq PRN Reason Stop Dose Admin Hydromorphone HCl 0.5 mg 06/30/22 02:56 06/30/22 03:04 Hydromorphone 1 Mg/1ml Inj 1 Mg/Ml Syringe IV 06/30/22 02:57 0.5 mg STAT ONE Administration Hydromorphone HCl Confirm 06/30/22 02:59 Hydromorphone 1 Mg/1ml Inj 1 Mg/Ml Syringe Administered 06/30/22 03:00 Dose 1 mg .ROUTE .STK-MED ONE Morphine Sulfate 4 mg 06/30/22 02:19 06/30/22 02:27 Morphine Sulfate 4 Mg/Ml Injection IV 06/30/22 02:20 4 mg STAT ONE Administration Morphine Sulfate Confirm 06/30/22 02:23 Morphine Sulfate 4 Mg/Ml Injection Administered 06/30/22 02:24 Dose 4 mg .ROUTE .STK-MED ONE Ondansetron HCl 4 mg 06/30/22 02:19 06/30/22 02:27 Ondansetron Hcl 4 Mg/2 Ml Vial IV 06/30/22 02:20 4 mg STAT ONE Administration Ondansetron HCl Confirm 06/30/22 02:23 Ondansetron Hcl 4 Mg/2 Ml Vial Administered 06/30/22 02:24 Dose 4 mg .ROUTE .STK-MED ONE Ondansetron HCl 4 mg 06/30/22 04:02 06/30/22 04:14 Ondansetron Hcl 4 Mg/2 Ml Vial IV 06/30/22 04:03 4 mg STAT ONE Administration Ondansetron HCl Confirm 06/30/22 04:13 Ondansetron Hcl 4 Mg/2 Ml Vial Administered 06/30/22 04:14 Dose 4 mg .ROUTE .STK-MED ONE Lab/Rad Data: Laboratory Result Diagrams 06/30/22 02:26 06/30/22 02:26 Laboratory Results 06/30/22 06/30/22 06/30/22 Range/Units 03:01 02:26 02:26 WBC (4.0-10.5) x10^3/uL RBC (4.1-5.4) x10^6/uL Hgb (12.0-16.0) g/dL Hct (35-47) % MCV (78-100) fL MCH (26-32) pg MCHC (32-36) g/dL RDW (11.5-14.0) % Plt Count (150-450) x10^3/uL MPV (7.5-11.0) fL Gran % (36.0-66.0) % Immature Gran % (Auto) (0.00-0.4) % Nucleat RBC Rel Count (0.00-0.1) % Eos # (Auto) (0-0.5) x10^3/uL Immature Gran # (Auto) (0.00-0.03) x10^3u/L Absolute Lymphs (auto) (1.0-4.6) x10^3/uL Absolute Monos (auto) (0.0-1.3) x10^3/uL Absolute Nucleated RBC (0.00-0.01) x10^3u/L Lymphocytes % (24.0-44.0) % Monocytes % (0.0-12.0) % Eosinophils % (0.00-5.0) % Basophils % (0.0-0.4) % Absolute Granulocytes (1.4-6.9) x10^3/uL Basophils # (0-0.4) x10^3/uL Sodium 140 (137-145) mmol/L Potassium 4.2 (3.5-5.1) mmol/L Chloride 106 (98-107) mmol/L Carbon Dioxide 24 (22-30) mmol/L Anion Gap 13.7 (5-15) MEQ/L BUN 14 (7-17) mg/dL Creatinine 0.74 (0.52-1.04) mg/dL Estimated GFR > 60.0 ML/MIN Glucose 138 H (74-106) mg/dL Calcium 9.0 (8.4-10.2) mg/dL Total Bilirubin 0.40 (0.2-1.3) mg/dL AST 34 (14-36) U/L ALT 38 H (0-35) U/L Alkaline Phosphatase 102 (38-126) U/L Troponin I < 0.012 (0.000-0.034) ng/mL NT-Pro-B Natriuret Pep 754 (<300) pg/mL Serum Total Protein 7.2 (6.3-8.2) g/dL Albumin 4.3 (3.5-5.0) g/dL Influenza Type A Ag NEGATIVE (NEGATIVE) Influenza Type B Ag NEGATIVE (NEGATIVE) RSV (PCR) NEGATIVE (NEGATIVE) SARS-CoV-2 (PCR) NEGATIVE (NEGATIVE) 06/30/22 Range/Units 02:26 WBC 8.6 (4.0-10.5) x10^3/uL RBC 4.44 (4.1-5.4) x10^6/uL Hgb 12.9 (12.0-16.0) g/dL Hct 39.7 (35-47) % MCV 89.4 (78-100) fL MCH 29.1 (26-32) pg MCHC 32.5 (32-36) g/dL RDW 12.8 (11.5-14.0) % Plt Count 226 (150-450) x10^3/uL MPV 11.4 H (7.5-11.0) fL Gran % 72.4 H (36.0-66.0) % Immature Gran % (Auto) 0.5 H (0.00-0.4) % Nucleat RBC Rel Count 0.0 (0.00-0.1) % Eos # (Auto) 0.17 (0-0.5) x10^3/uL Immature Gran # (Auto) 0.04 H (0.00-0.03) x10^3u/L Absolute Lymphs (auto) 1.51 (1.0-4.6) x10^3/uL Absolute Monos (auto) 0.60 (0.0-1.3) x10^3/uL Absolute Nucleated RBC 0.00 (0.00-0.01) x10^3u/L Lymphocytes % 17.6 L (24.0-44.0) % Monocytes % 7.0 (0.0-12.0) % Eosinophils % 2.0 (0.00-5.0) % Basophils % 0.5 (0.0-0.4) % Absolute Granulocytes 6.21 (1.4-6.9) x10^3/uL Basophils # 0.04 (0-0.4) x10^3/uL Sodium (137-145) mmol/L Potassium (3.5-5.1) mmol/L Chloride (98-107) mmol/L Carbon Dioxide (22-30) mmol/L Anion Gap (5-15) MEQ/L BUN (7-17) mg/dL Creatinine (0.52-1.04) mg/dL Estimated GFR ML/MIN Glucose (74-106) mg/dL Calcium (8.4-10.2) mg/dL Total Bilirubin (0.2-1.3) mg/dL AST (14-36) U/L ALT (0-35) U/L Alkaline Phosphatase (38-126) U/L Troponin I (0.000-0.034) ng/mL NT-Pro-B Natriuret Pep (<300) pg/mL Serum Total Protein (6.3-8.2) g/dL Albumin (3.5-5.0) g/dL Influenza Type A Ag (NEGATIVE) Influenza Type B Ag (NEGATIVE) RSV (PCR) (NEGATIVE) SARS-CoV-2 (PCR) (NEGATIVE) - Progress Progress: improved Progress Note: Patient is a 51-year-old female presents to our ED for evaluation of right upper quadrant pain. Patient has a history of known cholelithiasis. Physical exam reveals tenderness right upper quadrant. Testing ordered include EKG, CT abdomen pelvis, CBC, CMP, COVID testing, BNP, troponin. Work-up essentially nonremarkable. CT abdomen pelvis reveals a known right upper quadrant cholelithiasis. No evidence of cholecystitis per CT abdomen pelvis. Patient received initial dose of morphine for pain control. Patient later received a dose of Dilaudid for pain control. Normal saline infused. Zofran x2 administered. Patient now resting comfortably. Pain well controlled. A right upper quadrant ultrasound ordered for this morning. Results to be forwarded to Dr. Kennedy's office. Patient's presenting problem is acute. Complexity of problem addressed is moderate, acute complicated with nausea and vomiting. No critical care time. Complexity of data reviewed and analyzed is moderate. Test ordered. Test reviewed. Patient served as independent historian. Dr. Hill independently reviewed the EKG. Risk of complication and or risk morbidity/mortality of patient management is high. Patient received IV controlled medications for pain control. We will discharge patient home. Patient will obtain a outpatient right upper quadrant ultrasound to be performed today at 11 AM. Patient agrees to follow-up accordingly. She voices no other complaints or concerns at this time. Vital stable. Time spent to discharge patient is approximately 15 minutes. Discharge diagnosis is right upper quadrant pain, biliary colic, cholelithiasis, hydrops gallbladder Portions of this note were created with voice recognition technology. There may be grammatical, spelling, punctuation or sound alike errors Case discussed with Dr. Salmon who advises us to complete the ultrasound today 11. Patient then to call Dr. Arshad's office for follow-up. Dr. Lay says he has office today in [place]. He cannot see patient today if she is unable to see Dr. Arshad. 06/30/22 04:08 06/30/22 04:24 A prescription for [place] was forwarded to patient's pharmacy. A prescription for Zofran was forwarded to patient's pharmacy. 4 tabs of [place] fives was provided to patient directly from the ER for pain control upon discharge home. 06/30/22 04:[address] Malathi Will see patient in: office Counseled pt/family regarding: lab results, diagnosis, need for follow-up, rad results - Departure Departure Disposition: Home Clinical Impression: Lung nodule, Cholelithiasis, Adrenal gland nodule, Nephrolithiasis, Hydropic gallbladder Condition: Stable Critical Care Time: No Referrals: LISHA CALLEJAS [Primary Care Provider] - Follow up/PCP as directed Instructions: Gallstones (DC) Additional Instructions: Discharge/Care Plan Call Dr Arshad's office today to make an appointment- [phone]. Your ultrasound is scheduled for 11:30. Please be here at 1100 to check in. Nothing to eat or drink until after ultrasound is done. TAMIE KENNEDY was seen on 06/30/22 in the Emergency Room. The patient was counseled regarding Diagnosis,Lab results, Imaging studies, need for follow up and when to return to the Emergency Room. Prescriptions given: Discharge Note I have spoken with the patient and/or caregivers. I have explained the patient's condition, diagnosis and treatment plan based on the information available to me at this time. I have answered the patient's and/or caregiver's questions and addressed any concerns. The patient and/or caregivers have as good understanding of the patient's diagnosis, condition and treatment plan as can be expected at this point. The vital signs have been stable. The patient's condition is stable and appropriate for discharge from the emergency department. The patient will pursue further outpatient evaluation with the primary care physician or other designated or consulting physician as outlined in the discharge instructions. The patient and/or caregivers are agreeable to this plan of care and follow-up instructions have been explained in detail. The patient and/or caregivers have received these instruction. The patient/and or caregivers are aware that any significant change in condition or worsening of symptoms should prompt an immediate return to this or the closest emergency department or call 911. Prescriptions: Hydrocodone/APAP 5/325 [[place] 5/325 mg] 1 each PO Q6H PRN PRN 3 Days #10 tablet MDD 4 PRN Reason: Pain Ondansetron ODT 4 MG [Zofran Odt 4 mg] 4 mg PO Q6H PRN PRN #10 tablet PRN Reason: Vomiting
[2022-06-30 02:53] LABS: NT PRO BNPII 754 pg/mL (<300); TROPONIN < 0.012 ng/mL (0.000-0.034)
[2022-06-30] MEDS ORDERED: Hydromorphone 1 mg/ml Injection IV ONE (02:56)
[2022-06-30] MEDS ORDERED: Hydromorphone 1 mg/ml Injection ONE (02:59)
[2022-06-30 03:39] LABS: INFLUENZA A NEGATIVE (NEGATIVE); INFLUENZA B NEGATIVE (NEGATIVE); RESPIRATORY SYNCTIAL VIRUS NEGATIVE (NEGATIVE); SARS-CoV-2 Xpert Express NEGATIVE (NEGATIVE)
--- NOTE | 2022-06-30 03:51 | XRAY ---
CLINICAL HISTORY:Rt. UQ Pain. h/o gallstones. h/o appendectomy & tubal ligation. COMPARISON:None. TECHNIQUES:Multiple axial CT images were obtained through the abdomen and pelvis with coronal and sagittal reformat images without IV contrast material. Images were reviewed in parenchymal and bone window settings. CTDI: 16.91 mGy, DLP: 916.59 mGy.com FINDINGS: (Parenchymal organ evaluation is suboptimal within the limitation of non-contrast study):. The visualized portions of the lung areas: There is 0.65 cm nodule in the posterior segment of the right lower lobe. The visualized portion of the heart is normal in size without pericardial effusion. The abdominal aorta demonstrates no evidence of focal aneurysmal dilatation or dissection. The liver is normal in size and contour. The attenuation of liver parenchyma is normal. No focal parenchymal lesions and no evidence of parenchymal infiltration. No intrahepatic ductal dilatation is seen. The gallbladder measures 13 x 4.2 x 3.8 cm which is hydropic. There are 3 cm, 2.8 cm, and 2.7 cm stones in the gallbladder. No sign of cholecystitis. The common bile duct is normal in appearance. The spleen and pancreas are normal contour and attenuation characteristics without focal parenchymal lesions. The left adrenal gland is normal in size and no mass lesion is detected. There is a 1.4 x 1.1 cm nodular lesion in the right adrenal gland. The right kidney is normal in size, shape, and configuration. There is no evidence of renal mass. There is no hydronephrosis or munir-nephric stranding visualized. The right ureter is normal in course and caliber, without any filling defects. There is 0.12 cm, non-obstructing stone in the right kidney. The left kidney is normal in size, shape, and configuration. There is no evidence of renal mass. There is no hydronephrosis or munir-nephric stranding visualized. The left ureter is normal in course and caliber, without any filling defects. There is 0.7 cm non obstructing stone in the left kidney. The urinary bladder is unremarkable. Uterus is normal. No adnexal mass is detected. Esophagogastric junction and stomach are normal. The colon and the small bowel loops are normal in appearance and without wall thickening or inflammatory change. No sign of appendicitis. No intraperitoneal free air or fluid is visualized. No pathologic lymphadenopathy is seen. The bones and soft tissues are unremarkable. IMPRESSION: 1. Cholecystolithiasis without sign of cholecystitis. 2. Hydropic gallbladder. 3. Bilateral nephrolithiasis. 0.12 cm on the right and 0.7 cm on the left, non-obstructing. 4. 0.65 cm nodule in the included right lung. Please correlate clinically. 5. 1.4 x 1.1 cm right adrenal gland nodular lesion. Please evaluate clinically. Electronically Signed by: Christine Gutierrez MD. (06/30/2022 02:43:23 CUSTOMER SERVICE ADVISOR)
[2022-06-30 04:19] VITALS: BP 119/70; PULSE 71
[2022-06-30] MEDS ORDERED: NORCO 5/325 MG PO ONE (04:35)
[2022-06-30] MEDS ORDERED: NORCO 5/325 MG ONE (04:38)
== END 2022-06-30 04:45 | disposition home or self-care (01) ==
LOC: ED 01:51
DX: K80.20 Calculus of gallbladder without cholecystitis without obstruction (principal); R91.1 Solitary pulmonary nodule; E27.8 Other specified disorders of adrenal gland; N20.0 Calculus of kidney; K82.1 Hydrops of gallbladder; R10.11 Right upper quadrant pain; I11.0 Hypertensive heart disease with heart failure; I50.9 Heart failure, unspecified; Z79.891 Long term (current) use of opiate analgesic; Z28.310 Unvaccinated for COVID-19
CPT/HCPCS: 0241U; 36000; 36415; 74176; 80053; 83880; 84484; 85025; 93005; 93041; 94760; 96374; 96375; 96376; 99284; J1170; J2270; J2405; A9270-GY

== ENCOUNTER 2022-07-04 01:56 | Observation (INO) | payer MEDICAID ==
[2022-07-04] MEDS ORDERED: Hydromorphone 1 mg/ml Injection IV ONE (02:59)
[2022-07-04] MEDS ORDERED: Compazine 10 MG/2 ML IV ONE (02:59)
--- NOTE | 2022-07-04 03:01 | ERPHSYRPT ---
- History of Present Illness Time Seen by Provider: 07/04/22 02:54 Historian: patient Exam Limitations: no limitations Patient Subjective Stated Complaint: pt states there is something really wrong. I am suppose to meet with the surgeon tomorrow but the pain is so bad. Triage Nursing Assessment: pt ambulated into the er; pt is axo x4; c/o RUQ; no respiratory distress present; pt states she is unable to take deep breaths; hyperactive bowel sounds in all quads; abd soft, round; tenderness to RUQ; c/o N/V; tachycardic; skin PDW Physician History: Known gallstones, been in ER this week, had CT and then F/U US, surgical appt. pending, cannot tolerate the pain. No fever. Timing/Duration: yesterday Activities at Onset: none Quality: sharpness, stabbing Abdominal Pain Onset Location: RUQ Pain Radiation: no radiation Severity of Pain-Max: severe Severity of Pain-Current: severe Modifying Factors: Improves With: nothing Associated Symptoms: loss of appetite, nausea Previous symptoms: same symptoms as today, recently seen Allergies/Adverse Reactions: cephalexin monohydrate [From [employer]] Allergy (Mild, Verified 07/04/22 02:02) Hives Home Medications: Loratadine 10 mg [Claritin 10 mg] 10 mg PO DAILY 02/04/16 [History] Hx Tetanus, Diphtheria Vaccination/Date Given: Yes Hx Influenza Vaccination/Date Given: No Hx Pneumococcal Vaccination/Date Given: No Travel Risk - International Travel Have you traveled outside of the country in past 3 weeks: No - Coronavirus Screening Are you exhibiting any of the following symptoms?: No Close contact with a COVID-19 positive Pt in past 14-21 Days: No - Vaccine Status Have you recieved a Covid-19 vaccination: No - Review of Systems Constitutional: No Symptoms Eyes: No Symptoms Ears, Nose, & Throat: No Symptoms Respiratory: No Symptoms Cardiac: No Symptoms Abdominal/Gastrointestinal: Abdominal Pain, Nausea Genitourinary Symptoms: No Symptoms Musculoskeletal: No Symptoms Skin: No Symptoms Neurological: No Symptoms Psychological: No Symptoms, Hallucinations Hematologic/Lymphatic: No Symptoms Immunological/Allergic: No Symptoms All Other Systems: Reviewed and Negative - Past Medical History Pertinent Past Medical History: Yes Neurological History: Migraines ENT History: No Pertinent History Cardiac History: Congestive Heart Failure, Hypertension Respiratory History: No Pertinent History Endocrine Medical History: No Pertinent History Musculoskeletal History: Fractures, Other GI Medical History: No Pertinent History, Gallbladder Disease History: No Pertinent History Psycho-Social History: Other Female Reproductive Disorders: No Pertinent History Other Medical History: scoliosis, seasonal affective disorder - Past Surgical History Past Surgical History: Yes Neuro Surgical History: No Pertinent History Cardiac: No Pertinent History Respiratory: No Pertinent History Gastrointestinal: Appendectomy Genitourinary: No Pertinent History Musculoskeletal: No Pertinent History Female Surgical History: Tubal Ligation - Social History Smoking Status: Former smoker How long have you smoked: 34 Exposure to second hand smoke: No Drug Use: none Patient Lives Alone: No - Female History Hx Now: No - Nursing Vital Signs Nursing Vital Signs: Initial Vital Signs Temperature 98.7 F 07/04/22 02:03 Pulse Rate 104 H 07/04/22 02:03 Respiratory Rate 18 07/04/22 02:03 Blood Pressure 144/89 07/04/22 02:03 O2 Sat by Pulse Oximetry 98 07/04/22 02:03 Pain Scale Pain Intensity 7 - Physical Exam General Appearance: moderate distress, alert, obese Eye Exam: PERRL/EOMI Ears, Nose, Throat Exam: normal ENT inspection Neck Exam: normal inspection, non-tender Respiratory Exam: normal breath sounds Cardiovascular Exam: regular rate/rhythm Gastrointestinal/Abdomen Exam: soft, normal bowel sounds, tenderness, guarding Pelvic Exam: not done Rectal Exam: not done Back Exam: normal inspection, normal range of motion Extremity Exam: normal inspection, normal range of motion Neurologic Exam: alert, oriented x 3, cooperative Skin Exam: normal color, warm SpO2 Interpretation: normal SpO2: 98 O2 Delivery: Room Air Ordered Tests: Active Orders 24 hr Category Date Time Status Up Ad Anna TOLERATED Activity 07/04/22 04:07 Active Code Status Order ROUTINE Care 07/04/22 04:[address] in Observation ROUTINE Care 07/04/22 04:05 Active NPO Diet 07/04/22 04:06 Active AMYLASE Stat Lab 07/04/22 03:01 Completed CBC W DIFF Stat Lab 07/04/22 03:01 Completed CMP Stat Lab 07/04/22 03:01 Completed LIPASE Stat Lab 07/04/22 03:01 Completed Medication Summary Generic Name Dose Route Start Last Admin Trade Name Freq PRN Reason Stop Dose Admin Hydromorphone HCl 1 mg 04/10/23 04:04 Hydromorphone 1 Mg/1ml Inj 1 Mg/Ml Syringe IV 07/09/22 04:03 Q4H PRN PRN PAIN Sodium Chloride 1,000 mls @ 100 mls/hr 07/04/22 04:15 Sodium Chloride 0.9% 1000 Ml IV 08/03/22 04:14 .Q10H ERIN Ondansetron HCl 8 mg 07/04/22 04:04 Ondansetron Hcl 4 Mg/2 Ml Vial IV 08/03/22 04:03 Q6H PRN PRN NAUSEA/VOMITING Discontinued Medications Generic Name Dose Route Start Last Admin Trade Name Freq PRN Reason Stop Dose Admin Hydromorphone HCl 1 mg 07/04/22 02:59 07/04/22 03:12 Hydromorphone 1 Mg/1ml Inj 1 Mg/Ml Syringe IV 07/04/22 03:00 1 mg STAT ONE Administration Hydromorphone HCl Confirm 07/04/22 03:11 Hydromorphone 1 Mg/1ml Inj 1 Mg/Ml Syringe Administered 07/04/22 03:12 Dose 1 mg .ROUTE .STK-Lettuce[place] ONE Prochlorperazine Edisylate 10 mg 07/04/22 02:59 07/04/22 03:11 Prochlorperazine Edisylate 10 Mg/2 Ml Vial IV 07/04/22 03:00 10 mg STAT ONE Administration Prochlorperazine Edisylate Confirm 07/04/22 03:11 Prochlorperazine Edisylate 10 Mg/2 Ml Vial Administered 07/04/22 03:12 Dose 10 mg .ROUTE .STK-MED ONE Lab/Rad Data: Laboratory Result Diagrams 07/04/22 03:01 07/04/22 03:01 Laboratory Results 07/04/22 07/04/22 07/04/22 Range/Units 03:01 03:01 03:01 WBC 8.4 (4.0-10.5) x10^3/uL RBC 4.57 (4.1-5.4) x10^6/uL Hgb 13.1 (12.0-16.0) g/dL Hct 40.6 (35-47) % MCV 88.8 (78-100) fL MCH 28.7 (26-32) pg MCHC 32.3 (32-36) g/dL RDW 12.4 (11.5-14.0) % Plt Count 252 (150-450) x10^3/uL MPV 11.6 H (7.5-11.0) fL Gran % 65.4 (36.0-66.0) % Immature Gran % (Auto) 0.2 (0.00-0.4) % Nucleat RBC Rel Count 0.0 (0.00-0.1) % Eos # (Auto) 0.23 (0-0.5) x10^3/uL Immature Gran # (Auto) 0.02 (0.00-0.03) x10^3u/L Absolute Lymphs (auto) 1.88 (1.0-4.6) x10^3/uL Absolute Monos (auto) 0.76 (0.0-1.3) x10^3/uL Absolute Nucleated RBC 0.00 (0.00-0.01) x10^3u/L Lymphocytes % 22.3 L (24.0-44.0) % Monocytes % 9.0 (0.0-12.0) % Eosinophils % 2.7 (0.00-5.0) % Basophils % 0.4 (0.0-0.4) % Absolute Granulocytes 5.50 (1.4-6.9) x10^3/uL Basophils # 0.03 (0-0.4) x10^3/uL Sodium 137 (137-145) mmol/L Potassium 4.5 (3.5-5.1) mmol/L Chloride 97 L (98-107) mmol/L Carbon Dioxide 28 (22-30) mmol/L Anion Gap 16.7 H (5-15) MEQ/L BUN 6 L (7-17) mg/dL Creatinine 0.82 (0.52-1.04) mg/dL Estimated GFR > 60.0 ML/MIN Glucose 116 H (74-106) mg/dL Calcium 9.2 (8.4-10.2) mg/dL Total Bilirubin 0.70 (0.2-1.3) mg/dL AST 24 (14-36) U/L ALT 29 (0-35) U/L Alkaline Phosphatase 117 (38-126) U/L Serum Total Protein 7.3 (6.3-8.2) g/dL Albumin 4.2 (3.5-5.0) g/dL Amylase 42 (30-110) U/L Lipase 30 (23-300) U/L - Progress Progress: improved, pain not gone completely, re-examined Progress Note: 07/04/22 04:21 Pain improved with dilaudid, patient would like admitted for pain control. No need for repeat imaging. Labs unremarkable. OK to place in obs per Dr. Capellan, surgeon is here today and can consult on her. Discussed with : Simone Will see patient in: hospital (observation) Counseled pt/family regarding: lab results, diagnosis Medical Desision Making - Independent Historian Additional History obtained from: Relative/friend - Discussion of managment Care discussed with:: on-call "doc" Reviewed:: Test results Agreed on:: place in obs Will see patient: in hospital - Risk of complications Low Risk: Low risk of morbidity from additional dx testing or treatment - Departure Departure Disposition: Observation Clinical Impression: Gallstones with biliary obstruction Condition: Stable Critical Care Time: No Referrals: LISHA CALLEJAS [Primary Care Provider] - Follow up/PCP as directed
[2022-07-04 03:04] LABS: BASOPHIL % 0.4 % (0.0-0.4); Basophil (Absolute #) 0.03 x10^3/uL (0-0.4); Eosinophil % 2.7 % (0.00-5.0); Eosinophil (Absolute #) 0.23 x10^3/uL (0-0.5); Hematocrit 40.6 % (35-47); Hemoglobin 13.1 g/dL (12.0-16.0); IMMATURE GRAN # 0.02 x10^3u/L (0.00-0.03); IMMATURE GRAN % 0.2 % (0.00-0.4); Lymphocyte (Absolute #) 1.88 x10^3/uL (1.0-4.6); Lymphocytes % 22.3 % (24.0-44.0); Mean Cell Volume 88.8 fL (78-100); Mean Corpuscular Hemoglobin 28.7 pg (26-32); Mean Corpuscular Hgb Concent. 32.3 g/dL (32-36); Mean Platelet Volume 11.6 fL (7.5-11.0); Monocyte (Absolute #) 0.76 x10^3/uL (0.0-1.3); Neutrophil % 65.4 % (36.0-66.0); Platelet Count 252 x10^3/uL (150-450); Red Blood Count 4.57 x10^6/uL (4.1-5.4); Red Cell Distribution Width 12.4 % (11.5-14.0); White Blood Count 8.4 x10^3/uL (4.0-10.5)
[2022-07-04 03:09] LABS: ALBUMIN 4.2 g/dL (3.5-5.0); ALKALINE PHOSPHATASE 117 U/L (38-126); AMYLASE 42 U/L (30-110); ANION GAP 16.7 MEQ/L (5-15); BLOOD UREA NITROGEN 6 mg/dL (7-17); CHLORIDE 97 mmol/L (98-107); Calcium 9.2 mg/dL (8.4-10.2); Carbon Dioxide 28 mmol/L (22-30); Creatinine 1 0.82 mg/dL (0.52-1.04); EST GLOMERULAR FILTRATION RATE > 60.0 ML/MIN; Glucose 116 mg/dL (74-106); LIPASE 30 U/L (23-300); Potassium 4.5 mmol/L (3.5-5.1); SGOT/AST 24 U/L (14-36); SGPT/ALT 29 U/L (0-35); SODIUM 137 mmol/L (137-145); Total Protein 7.3 g/dL (6.3-8.2)
[2022-07-04] MEDS ORDERED: Compazine 10 MG/2 ML ONE (03:11)
[2022-07-04] MEDS ORDERED: Hydromorphone 1 mg/ml Injection ONE (03:11)
[2022-07-04] MEDS ORDERED: Hydromorphone 1 mg/ml Injection IV PRN (04:04)
[2022-07-04] MEDS ORDERED: Zofran 4 MG/2 ML VIAL IV PRN (04:04)
[2022-07-04 04:46] LABS: INFLUENZA A NEGATIVE (NEGATIVE); INFLUENZA B NEGATIVE (NEGATIVE); RESPIRATORY SYNCTIAL VIRUS NEGATIVE (NEGATIVE); SARS-CoV-2 Xpert Express NEGATIVE (NEGATIVE)
[2022-07-04] MEDS: Sodium Chloride 0.9% 1000 ML 1,000 ML IV SCH (06:33)
[2022-07-04] MEDS ORDERED: HYDROMORPHONE 30 MG/30 ML-NS PCA IV PRN (06:47)
[2022-07-04] MEDS ORDERED: Artificial Tears 15 ML OP PRN (07:00)
--- NOTE | 2022-07-04 08:59 | PCM.HP ---
History of Present Illness - Chief Complaint Chief Complaint: Gallbladder History of Present Illness: is a 51 year old female pt of mine from [facility] with HTN, HFpEF grade 1, migraines, scoliosis, and SAD who was admitted through ER with cholecystitis and cholelithiasis. She had come in to ER 5d ago with RUQ pain and was dx with cholelithiasis. She was sent home with OP surgical referral, norco, and zofran. She required a scopalamine transdermal patch at one point as well. She was r elatively active this weekend, able to sit and do tasks (just lost her home 10d ago to [employer]) but continued to have pain and nausea. Was tolerating small amounts of solid food but mostly drinking fluids. Last night the pain increased to >10/10 when she awoke at 2 am to use the restroom, so she returned to ER. On Dilaudid BATH TESTER, standard dose, and pain is still 6/10 and worse with any movement or deep breathing, or any jostling of her body. Denies fever. Did "see stars" at admission with some lightheadedness, due to pain. - Review of Systems Abdominal/Gastrointestinal: Abdominal Pain, Nausea, Constipation, Appetite Changes Neurological: Dizziness All Other Systems: Reviewed and Negative Medications & Allergies Home Medications: Home Medication List Loratadine 10 mg [Claritin 10 mg] 10 mg PO DAILY 02/04/16 [History Confirmed 07/04/22] Hydrocodone/APAP 5/325 [[place] 5/325 mg] 1 each PO Q6H PRN PRN 3 Days #10 tablet MDD 4 06/30/22 [Rx Confirmed 07/04/22] Ondansetron ODT 4 MG [Zofran Odt 4 mg] 4 mg PO Q6H PRN PRN #10 tablet 06/30/22 [Rx Confirmed 07/04/22] Cetirizine HCl [Zyrtec] 10 mg PO DAILY 07/04/22 [History Confirmed 07/04/22] Metoprolol Tartrate 25 mg [Lopressor 25MG Tab] 25 mg PO DAILY 07/04/22 [History Confirmed 07/04/22] lisinopriL [Lisinopril] 2.5 mg PO DAILY 07/04/22 [History Confirmed 07/04/22] Allergies/Adverse Reactions: Allergies Allergy/AdvReac Type Severity Reaction Status Date / Time cephalexin monohydrate Allergy Mild Hives Verified 07/04/22 02:02 [From Keflex] - Past Medical History Past Medical History: Yes Neurological History: Migraines ENT History: No Pertinent History Cardiac History: Congestive Heart Failure, Hypertension Respiratory History: No Pertinent History Endocrine Medical History: No Pertinent History Musculoskelatal History: Fractures, Other GI Medical History: No Pertinent History, Gallbladder Disease History: No Pertinent History Pyscho-Social History: Other Reproductive Disorders: No Pertinent History Comment: scoliosis, seasonal affective disorder - Female History Hx Last Menstrual Period: 2012 Are you now?: No - Past Surgical History Past Surgical History: Yes Neuro Surgical History: No Pertinent History Cardiac History: No Pertinent History Respiratory Surgery: No Pertinent History GI Surgical History: Appendectomy Genitourinary Surgical Hx: No Pertinent History Musculskeletal Surgical Hx: No Pertinent History Female Surgical History: Tubal Ligation - Social History Smoking Status: Former smoker How long have you smoked: 34 Exposure to second hand smoke: No Alcohol: None Drug Use: none - Physical Exam Vital Signs: Vital Signs - 24 hr Temp Pulse Resp BP Pulse Ox 07/04/22 08:00 16 138/76 07/04/22 07:20 16 07/04/22 07:11 98.4 F 87 16 138/76 93 L 07/04/22 05:59 98.5 F 93 H 22 129/77 95 07/04/22 05:44 98.5 F 93 H 22 129/77 95 07/04/22 05:05 90 18 104/75 95 07/04/22 04:24 98 07/04/22 04:02 90 16 134/78 93 L 07/04/22 03:00 93 H 134/78 96 07/04/22 02:03 98.7 F 104 H 18 144/89 98 General Appearance: mild distress, obese Neurologic Exam: oriented x 3, cooperative Eye Exam: eyes nml inspection Ears, Nose, Throat Exam: moist mucous membranes Respiratory Exam: normal breath sounds, lungs clear, No crackles/rales, No rhon chi, No wheezing Cardiovascular Exam: regular rate/rhythm, normal heart sounds, No murmur Gastrointestinal/Abdomen Exam: soft, normal bowel sounds, tenderness (throughout), distention, guarding, rebound, No mass Back Exam: normal inspection, No rash Extremity Exam: normal inspection, No pedal edema, No swelling Skin Exam: normal color, warm, dry, other (several areas lower extremities, healing abrasions) Results - Labs Lab/Micro Results: Lab Results-Last 24 Hours 07/04/22 07/04/22 07/04/22 Range/Units 03:01 03:01 03:01 WBC 8.4 (4.0-10.5) x10^3/uL RBC 4.57 (4.1-5.4) x10^6/uL Hgb 13.1 (12.0-16.0) g/dL Hct 40.6 (35-47) % MCV 88.8 (78-100) fL MCH 28.7 (26-32) pg MCHC 32.3 (32-36) g/dL RDW 12.4 (11.5-14.0) % Plt Count 252 (150-450) x10^3/uL MPV 11.6 H (7.5-11.0) fL Gran % 65.4 (36.0-66.0) % Immature Gran % (Auto) 0.2 (0.00-0.4) % Nucleat RBC Rel Count 0.0 (0.00-0.1) % Eos # (Auto) 0.23 (0-0.5) x10^3/uL Immature Gran # (Auto) 0.02 (0.00-0.03) x10^3u/L Absolute Lymphs (auto) 1.88 (1.0-4.6) x10^3/uL Absolute Monos (auto) 0.76 (0.0-1.3) x10^3/uL Absolute Nucleated RBC 0.00 (0.00-0.01) x10^3u/L Lymphocytes % 22.3 L (24.0-44.0) % Monocytes % 9.0 (0.0-12.0) % Eosinophils % 2.7 (0.00-5.0) % Basophils % 0.4 (0.0-0.4) % Absolute Granulocytes 5.50 (1.4-6.9) x10^3/uL Basophils # 0.03 (0-0.4) x10^3/uL Sodium 137 (137-145) mmol/L Potassium 4.5 (3.5-5.1) mmol/L Chloride 97 L (98-107) mmol/L Carbon Dioxide 28 (22-30) mmol/L Anion Gap 16.7 H (5-15) MEQ/L BUN 6 L (7-17) mg/dL Creatinine 0.82 (0.52-1.04) mg/dL Estimated GFR > 60.0 ML/MIN Glucose 116 H (74-106) mg/dL Calcium 9.2 (8.4-10.2) mg/dL Total Bilirubin 0.70 (0.2-1.3) mg/dL AST 24 (14-36) U/L ALT 29 (0-35) U/L Alkaline Phosphatase 117 (38-126) U/L Serum Total Protein 7.3 (6.3-8.2) g/dL Albumin 4.2 (3.5-5.0) g/dL Amylase 42 (30-110) U/L Lipase 30 (23-300) U/L Influenza Type A Ag (NEGATIVE) Influenza Type B Ag (NEGATIVE) RSV (PCR) (NEGATIVE) SARS-CoV-2 (PCR) (NEGATIVE) 07/04/22 Range/Units 04:08 WBC (4.0-10.5) x10^3/uL RBC (4.1-5.4) x10^6/uL Hgb (12.0-16.0) g/dL Hct (35-47) % MCV (78-100) fL MCH (26-32) pg MCHC (32-36) g/dL RDW (11.5-14.0) % Plt Count (150-450) x10^3/uL MPV (7.5-11.0) fL Gran % (36.0-66.0) % Immature Gran % (Auto) (0.00-0.4) % Nucleat RBC Rel Count (0.00-0.1) % Eos # (Auto) (0-0.5) x10^3/uL Immature Gran # (Auto) (0.00-0.03) x10^3u/L Absolute Lymphs (auto) (1.0-4.6) x10^3/uL Absolute Monos (auto) (0.0-1.3) x10^3/uL Absolute Nucleated RBC (0.00-0.01) x10^3u/L Lymphocytes % (24.0-44.0) % Monocytes % (0.0-12.0) % Eosinophils % (0.00-5.0) % Basophils % (0.0-0.4) % Absolute Granulocytes (1.4-6.9) x10^3/uL Basophils # (0-0.4) x10^3/uL Sodium (137-145) mmol/L Potassium (3.5-5.1) mmol/L Chloride (98-107) mmol/L Carbon Dioxide (22-30) mmol/L Anion Gap (5-15) MEQ/L BUN (7-17) mg/dL Creatinine (0.52-1.04) mg/dL Estimated GFR ML/MIN Glucose (74-106) mg/dL Calcium (8.4-10.2) mg/dL Total Bilirubin (0.2-1.3) mg/dL AST (14-36) U/L ALT (0-35) U/L Alkaline Phosphatase (38-126) U/L Serum Total Protein (6.3-8.2) g/dL Albumin (3.5-5.0) g/dL Amylase (30-110) U/L Lipase (23-300) U/L Influenza Type A Ag NEGATIVE (NEGATIVE) Influenza Type B Ag NEGATIVE (NEGATIVE) RSV (PCR) NEGATIVE (NEGATIVE) SARS-CoV-2 (PCR) NEGATIVE (NEGATIVE) Assessment/Plan (1) Cholelithiasis and cholecystitis without obstruction Current Visit: Yes Status: Acute Qualifiers: Cholelithiasis location: gallbladder Cholecystitis acuity: acute Qualified Code(s): K80.00 - Calculus of gallbladder with acute cholecystitis without obstruction Assessment & Plan: She has rebound for me on abd exam. I am increasing the dose of dilaudid BATH TESTER. Labs were good on admission; imaging was not repeated. Surgery consulting today, thank you. Code(s): K80.10 - CALCULUS OF GALLBLADDER W CHRONIC CHOLECYST W/O OBSTRUCTION
[2022-07-04] MEDS ORDERED: NORCO 5/325 MG PO PRN (09:16)
[2022-07-04] MEDS: HYDROMORPHONE 30 MG/30 ML-NS PCA IV PRN (09:30)
[2022-07-04 09:53] LABS: Absolute Neutrophil Ct (ANC) 3.96 x10^3/uL (1.4-6.9); BASOPHIL % 0.5 % (0.0-0.4); Basophil (Absolute #) 0.03 x10^3/uL (0-0.4); Eosinophil % 3.3 % (0.00-5.0); Eosinophil (Absolute #) 0.21 x10^3/uL (0-0.5); Hematocrit 38.1 % (35-47); Hemoglobin 12.3 g/dL (12.0-16.0); IMMATURE GRAN # 0.01 x10^3u/L (0.00-0.03); IMMATURE GRAN % 0.2 % (0.00-0.4); Lymphocyte (Absolute #) 1.44 x10^3/uL (1.0-4.6); Lymphocytes % 22.7 % (24.0-44.0); Mean Cell Volume 89.9 fL (78-100); Mean Corpuscular Hgb Concent. 32.3 g/dL (32-36); Mean Platelet Volume 11.1 fL (7.5-11.0); Monocyte (Absolute #) 0.68 x10^3/uL (0.0-1.3); Monocytes % 10.7 % (0.0-12.0); Neutrophil % 62.6 % (36.0-66.0); Platelet Count 235 x10^3/uL (150-450); Red Blood Count 4.24 x10^6/uL (4.1-5.4); Red Cell Distribution Width 12.4 % (11.5-14.0); White Blood Count 6.3 x10^3/uL (4.0-10.5)
[2022-07-04] MEDS: Zestril 5 MG PO SCH (09:55)
[2022-07-04] MEDS: Lopressor 25MG Tab PO SCH (09:55)
[2022-07-04] MEDS: CLARITIN 10 MG PO SCH (09:55)
[2022-07-04] MEDS ORDERED: NON-FORMULARY ITEM (Cetirizine Hcl [Zyrtec] 10 MG Tablet) PO SCH (10:00)
[2022-07-04 11:22] LABS: ALBUMIN 3.8 g/dL (3.5-5.0); ALKALINE PHOSPHATASE 128 U/L (38-126); ANION GAP 12.2 MEQ/L (5-15); BLOOD UREA NITROGEN 7 mg/dL (7-17); CHLORIDE 101 mmol/L (98-107); Calcium 8.9 mg/dL (8.4-10.2); Carbon Dioxide 28 mmol/L (22-30); Creatinine 1 0.71 mg/dL (0.52-1.04); EST GLOMERULAR FILTRATION RATE > 60.0 ML/MIN; Glucose 105 mg/dL (74-106); Potassium 4.5 mmol/L (3.5-5.1); SGOT/AST 38 U/L (14-36); SGPT/ALT 33 U/L (0-35); SODIUM 137 mmol/L (137-145); Total Protein 6.9 g/dL (6.3-8.2)
--- NOTE | 2022-07-04 16:31 | XRAY ---
Indication: Cholelithiasis. Cholecystitis. Two-dimensional abdominal sonogram performed. Comparison: None Pancreas not well-seen due to overlying bowel gas. Visualized liver and spleen are homogeneous in echogenicity. No organomegaly or ascites. Gallbladder mildly distended with a few gallstones, largest 2.5 cm. Abnormal gallbladder wall thickening up to 5 mm with pericholecystic fluid concerning for cholecystitis or common bile duct measures 5.8 mm. No intrahepatic biliary distention. Visualized aorta normal in course and caliber. Right kidney measures 10.7 cm and the left measures 11.2 cm in length. No focal solid/cystic renal mass or hydronephrosis. Impression: 1. Nonvisualization pancreas. 2. Mildly distended gallbladder with cholelithiasis and sonographic features favoring acute cholecystitis.
[2022-07-04 18:51] LABS: Appearance Clear (Clear); Bacteria None Seen /HPF (None Seen); Bilirubin Negative (Negative); Blood Negative (Negative); Epithelial Cells Rare /HPF (None Seen); Glucose, Urine Negative (Negative); Hyaline Casts NONE SEEN /LPF (0-2); Ketones Negative (Negative); Leukocyte Esterase Trace (Negative); Nitrite Negative (Negative); Ph 6.5 (4.6-8.0); Protein,Urine Dip Negative (Negative); RBC 0-2 /HPF (0-5); Specific Gravity <=1.005 (1.005-1.030)
[2022-07-04 19:00] LABS: ADD URINE CULTURE? NO (NO)
[2022-07-05] MEDS: Sodium Chloride 0.9% 1000 ML 1,000 ML IV SCH ×4 (01:41→20:25)
[2022-07-05] MEDS: HYDROMORPHONE 30 MG/30 ML-NS PCA IV PRN (05:28)
[2022-07-05 05:34] LABS: Hematocrit 36.1 % (35-47); Hemoglobin 11.4 g/dL (12.0-16.0); Mean Cell Volume 91.9 fL (78-100); Mean Corpuscular Hgb Concent. 31.6 g/dL (32-36); Mean Platelet Volume 11.7 fL (7.5-11.0); Platelet Count 223 x10^3/uL (150-450); Red Blood Count 3.93 x10^6/uL (4.1-5.4); Red Cell Distribution Width 12.4 % (11.5-14.0); White Blood Count 5.8 x10^3/uL (4.0-10.5)
[2022-07-05 06:28] LABS: ALBUMIN 3.8 g/dL (3.5-5.0); ALKALINE PHOSPHATASE 179 U/L (38-126); ANION GAP 13.1 MEQ/L (5-15); BLOOD UREA NITROGEN 8 mg/dL (7-17); CHLORIDE 103 mmol/L (98-107); Calcium 8.6 mg/dL (8.4-10.2); Carbon Dioxide 28 mmol/L (22-30); Creatinine 1 0.74 mg/dL (0.52-1.04); Direct Bilirubin 0.2 mg/dL (0.0-0.4); EST GLOMERULAR FILTRATION RATE > 60.0 ML/MIN; Glucose 92 mg/dL (74-106); Potassium 4.9 mmol/L (3.5-5.1); SGOT/AST 52 U/L (14-36); SGPT/ALT 50 U/L (0-35); SODIUM 139 mmol/L (137-145)
[2022-07-05] MEDS ORDERED: Versed 2 MG/2 ML Injection ONE (08:40)
[2022-07-05] MEDS ORDERED: SUBLIMAZE 100 MCG/2 ML ONE ×5 (08:40→10:17)
[2022-07-05] MEDS ORDERED: Zemuron 100 MG/10 ML ONE ×2 (08:40→09:57)
[2022-07-05] MEDS ORDERED: DIPRIVAN 200 MG/20 ML IV ONE (08:40)
[2022-07-05] MEDS ORDERED: Lactated Ringers 1,000 ML IV SCH (09:00)
[2022-07-05] MEDS ORDERED: Zofran 4 MG/2 ML VIAL ONE (09:25)
[2022-07-05] MEDS ORDERED: Decadron 4 MG INJ ONE (09:25)
[2022-07-05] MEDS ORDERED: BRIDION 200MG/2ML IV ONE (09:25)
[2022-07-05] MEDS ORDERED: Sensorcaine 0.25% 10 ML ONE (09:35)
[2022-07-05] MEDS ORDERED: CLINDAMYCIN-D5W 900 MG/50 ML*** 900 MG/50 ML BAG IV ONE (09:35)
[2022-07-05] MEDS ORDERED: Lactated Ringers 1,000 ML IV ONE (09:35)
--- NOTE | 2022-07-05 09:51 | PCM.NOTE ---
Date and Time: 07/05/22945 Subjective Assessment: Pt's surgery was not done yesterday, there was concern about her CHF and adrenal adenoma. She was comfortable all night with the dilaudid GAS [employer]ER; pain this morning 06/03. I spoke with the [employer] MECH[employer]ICAL TECHNICIAN and the surgeon this morning. I also spoke with the radiologist; pt's adrenal mass was actually present on the 02/2021 CT abd/pelvis and is unchanged. It is also < 1 HU so is almost 100% likely to be benign. Discussed with surgery, along with the fact that she has not had labile hypertension, and her CHF was Grade I diastolic dysfunction with preserved ejection fraction. I do feel comfortable with pt proceeding with surgery in light of the condition of her gallbladder. Her alk phos continues to increase, and is up to 179, with LFTs in the lower 50s. Objective Exam General Appearance: no apparent distress, alert Neurologic Exam: cooperative, other (blunted affect but conversant) Skin Exam: normal color, warm, dry, No rash Eye Exam: eyes nml inspection Ears, Nose, Throat Exam: moist mucous membranes Respiratory Exam: normal breath sounds, lungs clear, No crackles/rales, No rhonchi, No wheezing Cardiovascular Exam: regular rate/rhythm, normal heart sounds, No murmur Gastrointestinal/Abdomen Exam: soft, normal bowel sounds, tenderness (mild RUQ, much less than yesterday), distention, No mass, No guarding, No rebound Extremity Exam: normal inspection, No pedal edema, No swelling Back Exam: normal inspection, No rash OBJECTIVE DATA Vital Signs: Vital Signs - 24 hr Temp Pulse Resp BP Pulse Ox 07/05/22 08:46 96.8 F 88 16 138/75 94 L 07/05/22 07:55 96.8 F 88 16 138/75 94 L 07/05/22 07:28 92 L 07/05/22 07:00 16 94 L 07/05/22 05:28 17 96 07/05/22 04:00 98.2 F 83 17 119/58 96 07/05/22 00:00 98.2 F 90 18 125/60 96 07/04/22 23:44 94 L 07/04/22 19:47 97.9 F 92 H 20 137/72 96 07/04/22 15:54 97.9 F 97 H 16 131/71 92 L 07/04/22 12:00 97.5 F 90 16 125/72 91 L Pain Assessment - Last Documented Pain Intensity 3 Intake and Output: Intake & Output 07/02/22 07/03/22 07/04/22 07/05/22 11:59 11:59 11:59 11:59 Intake Total 0 2699 Output Total 1530 Balance 0 1169 Weight 107 kg 107 kg Lab Results: Lab Results-Last 24 Hours 07/04/22 07/04/22 07/04/22 Range/Units 09:46 09:46 18:30 WBC 6.3 (4.0-10.5) x10^3/uL RBC 4.24 (4.1-5.4) x10^6/uL Hgb 12.3 (12.0-16.0) g/dL Hct 38.1 (35-47) % MCV 89.9 (78-100) fL MCH 29.0 (26-32) pg MCHC 32.3 (32-36) g/dL RDW 12.4 (11.5-14.0) % Plt Count 235 (150-450) x10^3/uL MPV 11.1 H (7.5-11.0) fL Gran % 62.6 (36.0-66.0) % Immature Gran % (Auto) 0.2 (0.00-0.4) % Nucleat RBC Rel Count 0.0 (0.00-0.1) % Eos # (Auto) 0.21 (0-0.5) x10^3/uL Immature Gran # (Auto) 0.01 (0.00-0.03) x10^3u/L Absolute Lymphs (auto) 1.44 (1.0-4.6) x10^3/uL Absolute Monos (auto) 0.68 (0.0-1.3) x10^3/uL Absolute Nucleated RBC 0.00 (0.00-0.01) x10^3u/L Lymphocytes % 22.7 L (24.0-44.0) % Monocytes % 10.7 (0.0-12.0) % Eosinophils % 3.3 (0.00-5.0) % Basophils % 0.5 (0.0-0.4) % Absolute Granulocytes 3.96 (1.4-6.9) x10^3/uL Basophils # 0.03 (0-0.4) x10^3/uL Sodium 137 (137-145) mmol/L Potassium 4.5 (3.5-5.1) mmol/L Chloride 101 (98-107) mmol/L Carbon Dioxide 28 (22-30) mmol/L Anion Gap 12.2 (5-15) MEQ/L BUN 7 (7-17) mg/dL Creatinine 0.71 (0.52-1.04) mg/dL Estimated GFR > 60.0 ML/MIN Glucose 105 (74-106) mg/dL Calcium 8.9 (8.4-10.2) mg/dL Total Bilirubin 0.80 (0.2-1.3) mg/dL Direct Bilirubin (0.0-0.4) mg/dL AST 38 H (14-36) U/L ALT 33 (0-35) U/L Alkaline Phosphatase 128 H (38-126) U/L Serum Total Protein 6.9 (6.3-8.2) g/dL Albumin 3.8 (3.5-5.0) g/dL Urine Color Yellow (Yellow) Urine Appearance Clear (Clear) Urine pH 6.5 (4.6-8.0) Ur Specific [place] <=1.005 (1.005-1.030) Urine Protein Negative (Negative) Urine Glucose (UA) Negative (Negative) mg/dL Urine Ketones Negative (Negative) Urine Blood Negative (Negative) Urine Nitrite Negative (Negative) Urine Bilirubin Negative (Negative) Urine Urobilinogen 1.0 A (0.2) mg/dL Ur Leukocyte Esterase Trace A (Negative) U Hyaline Cast (Auto) NONE SEEN (0-2) /LPF Urine Microscopic RBC 0-2 (0-5) /HPF Urine Microscopic WBC 6-10 A (0-5) /HPF Ur Epithelial Cells Rare (None Seen) /HPF Urine Bacteria None Seen (None Seen) /HPF Urine Culture Reflexed NO (NO) 07/05/22 07/05/22 Range/Units 04:00 04:49 WBC 5.8 (4.0-10.5) x10^3/uL RBC 3.93 L (4.1-5.4) x10^6/uL Hgb 11.4 L (12.0-16.0) g/dL Hct 36.1 (35-47) % MCV 91.9 (78-100) fL MCH 29.0 (26-32) pg MCHC 31.6 L (32-36) g/dL RDW 12.4 (11.5-14.0) % Plt Count 223 (150-450) x10^3/uL MPV 11.7 H (7.5-11.0) fL Gran % (36.0-66.0) % Immature Gran % (Auto) (0.00-0.4) % Nucleat RBC Rel Count (0.00-0.1) % Eos # (Auto) (0-0.5) x10^3/uL Immature Gran # (Auto) (0.00-0.03) x10^3u/L Absolute Lymphs (auto) (1.0-4.6) x10^3/uL Absolute Monos (auto) (0.0-1.3) x10^3/uL Absolute Nucleated RBC (0.00-0.01) x10^3u/L Lymphocytes % (24.0-44.0) % Monocytes % (0.0-12.0) % Eosinophils % (0.00-5.0) % Basophils % (0.0-0.4) % Absolute Granulocytes (1.4-6.9) x10^3/uL Basophils # (0-0.4) x10^3/uL Sodium 139 (137-145) mmol/L Potassium 4.9 (3.5-5.1) mmol/L Chloride 103 (98-107) mmol/L Carbon Dioxide 28 (22-30) mmol/L Anion Gap 13.1 (5-15) MEQ/L BUN 8 (7-17) mg/dL Creatinine 0.74 (0.52-1.04) mg/dL Estimated GFR > 60.0 ML/MIN Glucose 92 (74-106) mg/dL Calcium 8.6 (8.4-10.2) mg/dL Total Bilirubin 0.70 (0.2-1.3) mg/dL Direct Bilirubin 0.2 (0.0-0.4) mg/dL AST 52 H (14-36) U/L ALT 50 H (0-35) U/L Alkaline Phosphatase 179 H (38-126) U/L Serum Total Protein 7.0 (6.3-8.2) g/dL Albumin 3.8 (3.5-5.0) g/dL Urine Color (Yellow) Urine Appearance (Clear) Urine pH (4.6-8.0) Ur Specific [place] (1.005-1.030) Urine Protein (Negative) Urine Glucose (UA) (Negative) mg/dL Urine Ketones (Negative) Urine Blood (Negative) Urine Nitrite (Negative) Urine Bilirubin (Negative) Urine Urobilinogen (0.2) mg/dL Ur Leukocyte Esterase (Negative) U Hyaline Cast (Auto) (0-2) /LPF Urine Microscopic RBC (0-5) /HPF Urine Microscopic WBC (0-5) /HPF Ur Epithelial Cells (None Seen) /HPF Urine Bacteria (None Seen) /HPF Urine Culture Reflexed (NO) Radiology Exams: Radiology Procedures Category Date Time Status UPPER ABDOMEN [US] Urgent Exams 07/04/22 14:30 Completed Assessment/Plan (1) Cholelithiasis and cholecystitis without obstruction Current Visit: Yes Status: Acute Qualifiers: Cholelithiasis location: gallbladder Cholecystitis acuity: acute Qualified Code(s): K80.00 - Calculus of gallbladder with acute cholecystitis without obstruction Assessment & Plan: cholecystectomy this morning with Dr. Brandon Arshad, thank you. 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 Code(s): I50.9 - HEART FAILURE, UNSPECIFIED
[2022-07-05] MEDS ORDERED: DEXMEDETOMIDINE 80 MCG/20ML-NS IV ONE (10:12)
[2022-07-05] MEDS ORDERED: TRANDATE 20 MG/4 ML SYRINGE IV ONE (11:12)
[2022-07-05] MEDS ORDERED: Compazine 10 MG/2 ML ONE (11:24)
[2022-07-05] MEDS: Lopressor 25MG Tab PO SCH (12:28)
[2022-07-05] MEDS: Zestril 5 MG PO SCH (12:28)
[2022-07-05] MEDS: CLARITIN 10 MG PO SCH (12:28)
--- NOTE | 2022-07-05 14:51 | CONS ---
AMENDED REPORT: CONSULT DATE: 07/04/2022 HISTORY: This is a patient who was seen personally on 07/04/2022 after being admitted for right upper quadrant abdominal pain. My initial notes are in the patients chart and this is her full additional consultation note. The patient reports increasing upper abdominal pain and this is worse on the right. It seems to be aggravated by food. She has actually had multiple visits due to the pain and over time it has been worsening and has been much more acute in the past week. She did state that she had outpatient imaging with CT scan as well as ultrasound that showed a distended gallbladder with concern for gallbladder disease and that she was actually being referred over to our surgical group on 07/04/2022 to see us as an outpatient to discuss cholecystectomy. However, the pain was so severe the night prior to the appointment that she presented to the emergency room and now she is admitted and being cared for by the medical team due to the exacerbation. She has not had any chest pains. She does not have shortness of breath. I have reviewed her imaging report personally. I have also reviewed her labs and her vital signs. PAST MEDICAL HISTORY: Hypertension, migraines, anxiety attack, congestive heart failure. PAST SURGICAL HISTORY: None. MEDICATIONS: Her medications were reviewed and include antihypertensive, Zyrtec and Flushing. She has also had two abdominal surgeries including an appendectomy and tubal ligation. ALLERGIES: CEPHALEXIN MONOHYDRATE. PHYSICAL EXAMINATION: GENERAL: No acute distress. HEENT: Eye no jaundice. CVS: Regular rate and rhythm. PULMONARY: Nonlabored. ABDOMEN: Soft, tender to palpation right upper quadrant and epigastric. No rebound, nontender at the remainder of the abdomen. DIAGNOSES: 1) Acute cholecystitis with cholelithiasis. 2) Incidental adrenaloma, work up pending. PLAN: I discussed the patient's case in detail as well with anesthesia. The patient has an incidental adrenal nodule noticed on her CT scan. She also has migraines and history of anxiety attacks, hypertension and congestive heart failure. Due to compilation of the findings and history, we have discussed getting a preoperative cardiac evaluation prior to proceeding with surgery. I also did order in the chart labs to work up the adrenal gland lesion. Once we have cardiac evaluation then we will determine when to proceed with her cholecystectomy. I did discuss with her the risks and benefits of cholecystectomy and that as long as this is appropriate from cardiac perspective we will likely plan to do this during this admission. She will continue to be rehydrated and I have also discussed this case with my partner. The patient understands and agrees. She is also getting IV pain medication currently and will await final cardiac recommendations.
[2022-07-05] MEDS ORDERED: NORCO 5/325 MG PO PRN (17:45)
[2022-07-05] MEDS ORDERED: Pepto-Bismol PO PRN (21:24)
[2022-07-05] MEDS ORDERED: Docusate Sodium 100 MG PO PRN (21:24)
[2022-07-05] MEDS ORDERED: Tums EX 750 MG ONE (21:45)
[2022-07-05] MEDS ORDERED: Tums EX 750 MG PO PRN (21:54)
[2022-07-06] MEDS ORDERED: NORCO 5/325 MG ONE ×2 (00:29→04:38)
[2022-07-06] MEDS: NORCO 5/325 MG PO PRN ×6 (00:33→17:18)
[2022-07-06] MEDS: ZOFRAN ODT 4 MG PO PRN ×2 (05:14→12:09)
[2022-07-06] MEDS ORDERED: NORCO 5/325 MG PO ONE (05:25)
[2022-07-06 07:19] LABS: Absolute Neutrophil Ct (ANC) 5.91 x10^3/uL (1.4-6.9); BASOPHIL % 0.4 % (0.0-0.4); Basophil (Absolute #) 0.03 x10^3/uL (0-0.4); Eosinophil % 0.5 % (0.00-5.0); Eosinophil (Absolute #) 0.04 x10^3/uL (0-0.5); Hematocrit 37.6 % (35-47); Hemoglobin 12.1 g/dL (12.0-16.0); IMMATURE GRAN # 0.01 x10^3u/L (0.00-0.03); IMMATURE GRAN % 0.1 % (0.00-0.4); Lymphocyte (Absolute #) 1.41 x10^3/uL (1.0-4.6); Lymphocytes % 17.5 % (24.0-44.0); Mean Cell Volume 89.5 fL (78-100); Mean Corpuscular Hemoglobin 28.8 pg (26-32); Mean Corpuscular Hgb Concent. 32.2 g/dL (32-36); Monocyte (Absolute #) 0.68 x10^3/uL (0.0-1.3); Monocytes % 8.4 % (0.0-12.0); Neutrophil % 73.1 % (36.0-66.0); Platelet Count 259 x10^3/uL (150-450); Red Cell Distribution Width 12.3 % (11.5-14.0); White Blood Count 8.1 x10^3/uL (4.0-10.5)
[2022-07-06 07:31] LABS: ALKALINE PHOSPHATASE 174 U/L (38-126); ANION GAP 13.1 MEQ/L (5-15); BLOOD UREA NITROGEN 6 mg/dL (7-17); CHLORIDE 101 mmol/L (98-107); Calcium 8.9 mg/dL (8.4-10.2); Carbon Dioxide 28 mmol/L (22-30); Creatinine 1 0.63 mg/dL (0.52-1.04); EST GLOMERULAR FILTRATION RATE > 60.0 ML/MIN; Glucose 121 mg/dL (74-106); Potassium 4.1 mmol/L (3.5-5.1); SGOT/AST 58 U/L (14-36); SGPT/ALT 61 U/L (0-35); SODIUM 139 mmol/L (137-145); Total Protein 7.5 g/dL (6.3-8.2)
[2022-07-06] MEDS: Zestril 5 MG PO SCH (09:07)
[2022-07-06] MEDS: Lopressor 25MG Tab PO SCH (09:08)
[2022-07-06] MEDS ORDERED: CLARITIN 10 MG PO SCH (10:00)
[2022-07-06] MEDS ORDERED: NON-FORMULARY ITEM PO SCH (10:00)
[2022-07-06] MEDS ORDERED: PATIENT OWN MEDICATION PO SCH (10:00)
--- NOTE | 2022-07-06 12:24 | PCM.DS ---
Discharge Summary Date of Admission: 07/04/22 05:04 Admitting Physician: LISHA CALLEJAS Consults: Consults on Case 07/04/22 05:44 Consult Surgery ROUTINE Primary Care Provider: LISHA CALLEJAS Allergies Allergies cephalexin monohydrate [From Keflex] Allergy (Mild, Verified 07/04/22 02:02) [facility] Summary - Hospital Course Hospital Course: Pt is a 51 yo pt of mine with migraines, HTN, CHF (grade 1 diastolic dysfunction) who was admitted with cholecystitis. She had been to ER last week with abd pain and CT showed hydrops gallbladder with a 2.7cm stone in the neck. No obstruction at that time. She came in several days ago with increased abd pain and was admitted for pain control and cholecystectomy. She was on dilaudid MILL HAND PLATE MILL which had to be increased over the usual dose. She did have her cholecystectomy yesterday without complication and has been tolerating po and passing gas. Would like to be discharged to home. She did have an adrenal mass found on CT; I did speak with Dr. Serrano and it was unchanged since her 02/2021 CT scan, and was < 1 HU. Some elevated BP here, nothing over 170 systolic. She will go home with a CORY drain and f/u with surgery. F/u with me in 1 week. - Vitals & Intake/Output Vital Signs: Vital Signs Temperature 97.5 F 07/06/22 11:31 Pulse Rate 79 07/06/22 11:31 Respiratory Rate 17 07/06/22 11:31 Blood Pressure 162/80 07/06/22 11:31 O2 Sat by Pulse Oximetry 97 07/06/22 11:31 Intake & Output: Intake & Output 07/04/22 07/05/22 07/06/22 07/07/22 11:59 11:59 11:59 11:59 Intake Total 0 2699 3130 Output Total 1530 75 Balance 0 1169 3055 Weight 107 kg 107 kg - Lab Result Diagrams: 07/06/22 07:12 07/06/22 07:12 Lab Results-Last 24 Hrs: Lab Results-Last 24 Hours 07/05/22 07/06/22 07/06/22 Range/Units 04:49 07:12 07:12 WBC 8.1 (4.0-10.5) x10^3/uL RBC 4.20 (4.1-5.4) x10^6/uL Hgb 12.1 (12.0-16.0) g/dL Hct 37.6 (35-47) % MCV 89.5 (78-100) fL MCH 28.8 (26-32) pg MCHC 32.2 (32-36) g/dL RDW 12.3 (11.5-14.0) % Plt Count 259 (150-450) x10^3/uL MPV 11.0 (7.5-11.0) fL Gran % 73.1 H (36.0-66.0) % Immature Gran % (Auto) 0.1 (0.00-0.4) % Nucleat RBC Rel Count 0.0 (0.00-0.1) % Eos # (Auto) 0.04 (0-0.5) x10^3/uL Immature Gran # (Auto) 0.01 (0.00-0.03) x10^3u/L Absolute Lymphs (auto) 1.41 (1.0-4.6) x10^3/uL Absolute Monos (auto) 0.68 (0.0-1.3) x10^3/uL Absolute Nucleated RBC 0.00 (0.00-0.01) x10^3u/L Lymphocytes % 17.5 L (24.0-44.0) % Monocytes % 8.4 (0.0-12.0) % Eosinophils % 0.5 (0.00-5.0) % Basophils % 0.4 (0.0-0.4) % Absolute Granulocytes 5.91 (1.4-6.9) x10^3/uL Basophils # 0.03 (0-0.4) x10^3/uL Sodium 139 (137-145) mmol/L Potassium 4.1 (3.5-5.1) mmol/L Chloride 101 (98-107) mmol/L Carbon Dioxide 28 (22-30) mmol/L Anion Gap 13.1 (5-15) MEQ/L BUN 6 L (7-17) mg/dL Creatinine 0.63 (0.52-1.04) mg/dL Estimated GFR > 60.0 ML/MIN Glucose 121 H (74-106) mg/dL Calcium 8.9 (8.4-10.2) mg/dL Total Bilirubin 0.50 (0.2-1.3) mg/dL AST 58 H (14-36) U/L ALT 61 H (0-35) U/L Alkaline Phosphatase 174 H (38-126) U/L Serum Total Protein 7.5 (6.3-8.2) g/dL Albumin 4.0 (3.5-5.0) g/dL Aldosterone Pending Cortisol 4.8 (.) ug/dL Micro Results-Entire Visit: Microbiology 07/05/22 08:49 Urine Culture - Preliminary Clean Catch Midstream NO GROWTH TO DATE - Radiology Exams Ordered Rad Exams-Entire Visit: Radiology Procedures Category Date Time Status UPPER ABDOMEN [US] Urgent Exams 07/04/22 14:30 Completed - Procedures and Test Procedures and Tests throughout Hospitalization: Therapy Orders & Screens 07/04/22 11:21 EKG ROUTINE Comment: Diagnosis: Gallbladder surgery 07/04/22 23:44 Oxygen NASAL CANNULA 2 lpm Comment: Diagnosis: Gallbladder surgery Discharge Exam General Appearance: no apparent distress, alert Neurologic Exam: oriented x 3, cooperative Eye Exam: eyes nml inspection Ears, Nose, Throat Exam: moist mucous membranes Neck Exam: normal inspection Respiratory Exam: normal breath sounds, lungs clear, No crackles/rales, No rhonchi, No wheezing Cardiovascular Exam: regular rate/rhythm, normal heart sounds, No murmur Back Exam: normal inspection, No rash Extremity Exam: normal inspection Skin Exam: normal color, warm, dry, No rash Final Diagnosis/Problem List - Final Discharge Diagnosis/Problem (1) Cholelithiasis and cholecystitis without obstruction Current Visit: Yes Status: Acute Assessment & Plan: When cleared by surgery, ok to discharge to home. 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 (3) CHF (congestive heart failure) Current Visit: Yes Status: Chronic Code(s): I50.9 - HEART FAILURE, UNSPECIFIED (4) HTN (hypertension) Current Visit: Yes Status: Chronic Code(s): I10 - ESSENTIAL (PRIMARY) HYPERTENSION - Discharge Disposition: Home, Self-Care Condition: Good Prescriptions: New Hydrocodone/Acetaminophen [Hydrocodone-Acetamin 7.5-325] 1 each PO Q6H #20 tablet MDD 4 pills No Action Loratadine 10 mg [Claritin 10 mg] 10 mg PO DAILY Hydrocodone/APAP 5/325 [[place] 5/325 mg] 1 each PO Q6H PRN PRN 3 Days #10 tablet MDD 4 PRN Reason: Pain Ondansetron ODT 4 MG [Zofran Odt 4 mg] 4 mg PO Q6H PRN PRN #10 tablet PRN Reason: Vomiting Cetirizine HCl [Zyrtec] 10 mg PO DAILY lisinopriL [Lisinopril] 2.5 mg PO DAILY Metoprolol Tartrate 25 mg [Lopressor 25MG Tab] 25 mg PO DAILY Follow up with: LISHA CALLEJAS [Primary Care Provider] -
[2022-07-06 17:16] VITALS: BP 174/87; PULSE 91; O2SAT 96
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
== END 2022-07-06 18:06 | disposition home or self-care (01) ==
LOC: ED 01:56 → MED SURG 05:04
PROVIDERS: ADMIT Family Medicine; ATTEND Family Medicine
DX: K80.10 Calculus of gallbladder with chronic cholecystitis without obstruction (principal); D35.00 Benign neoplasm of unspecified adrenal gland; I11.0 Hypertensive heart disease with heart failure; I50.9 Heart failure, unspecified; Z79.899 Other long term (current) drug therapy; Z20.828 Contact with and (suspected) exposure to other viral communicable diseases
CPT/HCPCS: 0241U; 36415; 76700; 80048; 80053; 80076; 81001; 82088; 82150; 82533; 82570; 83690; 83835; 84244; 84585; 84588; 85025; 85027; 87086; 93005; 93268; 94760; 94762; 96374; 96375; 99284; J1100; J1170; J2250; J2405; J2704; J3010; Q0162; A9270-GY; G0378

== ENCOUNTER 2023-09-18 16:31 | Emergency (ER) | payer OTHER ==
[2023-09-18 16:47] VITALS: TEMP 97
--- NOTE | 2023-09-18 16:51 | ERPHSYRPT ---
- History of Present Illness Source: patient Exam Limitations: no limitations Patient Subjective Stated Complaint: pt here for lower left back pain since that is now radiating to abd, roxyeis injury Triage Nursing Assessment: pt alert, walked in, resp easy, skin w/d/p. Physician History: 52-year-old white female with left costovertebral angle pain x 4 days. Pain is described as a dull ache and is currently 7 out of 10. It radiates to the left side of her abdomen And is worse with movement. She denies dysuria, hematuria, fever, and injury. Timing/Duration: other ( 4 days) Method of Injury: other ( denies any) Quality: aching ( dull ache) Back Pain Location: paraspinous muscles ( left costovertebral angle) Severity of Pain-Max: severe Severity of Pain-Current: moderate Modifying Factors: Improves With: movement Associated Symptoms: denies symptoms Previous symptoms: no prior history Allergies/Adverse Reactions: cephalexin monohydrate [From Keflex] Allergy (Mild, Verified 07/04/22 02:02) Hives Home Medications: Loratadine 10 mg [Claritin 10 mg] 10 mg PO DAILY 02/04/16 [History] Cetirizine HCl [Zyrtec] 10 mg PO DAILY 07/04/22 [History] Metoprolol Tartrate 25 mg [Lopressor 25MG Tab] 25 mg PO DAILY 07/04/22 [History] lisinopriL [Lisinopril] 2.5 mg PO DAILY 07/04/22 [History] Hx Tetanus, Diphtheria Vaccination/Date Given: No Hx Influenza Vaccination/Date Given: No Hx Pneumococcal Vaccination/Date Given: No Immunizations Up to Date: Yes Travel Risk - International Travel Have you traveled outside of the country in past 3 weeks: No - Emerging Infectious Disease Are you exhibiting symptoms associated with any current EIDs: No - Review of Systems Constitutional: No Symptoms Eyes: No Symptoms Ears, Nose, & Throat: No Symptoms Respiratory: No Symptoms Cardiac: No Symptoms Abdominal/Gastrointestinal: Abdominal Pain Genitourinary Symptoms: No Symptoms Musculoskeletal: No Symptoms, Back Pain Skin: No Symptoms Neurological: No Symptoms Psychological: No Symptoms Endocrine: No Symptoms Hematologic/Lymphatic: No Symptoms Immunological/Allergic: No Symptoms - Past Medical History Pertinent Past Medical History: Yes Neurological History: Migraines ENT History: No Pertinent History Cardiac History: Congestive Heart Failure, Hypertension Respiratory History: No Pertinent History Endocrine Medical History: No Pertinent History Musculoskeletal History: Fractures, Other GI Medical History: No Pertinent History, Gallbladder Disease History: No Pertinent History Psycho-Social History: Other Female Reproductive Disorders: No Pertinent History Other Medical History: scoliosis, seasonal affective disorder - Past Surgical History Past Surgical History: Yes Neuro Surgical History: No Pertinent History Cardiac: No Pertinent History Respiratory: No Pertinent History Gastrointestinal: Appendectomy, Cholecystectomy Genitourinary: No Pertinent History Musculoskeletal: No Pertinent History Female Surgical History: Tubal Ligation - Female History Hx Last Menstrual Period: post Hx Now: No - Social History Smoking Status: Former smoker How long have you smoked: 34 Exposure to second hand smoke: No Drug Use: none Patient Lives Alone: No - Social Determinants of Health Will the patient participate in the screening: Yes Do you worry about a steady place to live?: No Do you have any problems with any of the following?: No known problems In the past 12 months,have you had to go without utilities?: No Transportation Issues: No Has anyone in your support network made you feel unsafe?: No Have you or anyone in your house had to go without enough: No - Nursing Vital Signs Nursing Vital Signs: Initial Vital Signs Blood Pressure 184/104 09/18/23 16:43 O2 Sat by Pulse Oximetry 96 09/18/23 16:43 Pain Scale Pain Intensity [] 7 Pain Intensity 2 hypertensive - Physical Exam General Appearance: no apparent distress Eye Exam: PERRL/EOMI, eyes nml inspection Ears, Nose, Throat Exam: normal ENT inspection, TMs normal, pharynx normal, moist mucous membranes Neck Exam: normal inspection, non-tender, supple, full range of motion, No meningismus, No mass, No Brudzinski, No Kernig's Respiratory Exam: normal breath sounds, lungs clear, airway intact Cardiovascular Exam: regular rate/rhythm, normal heart sounds, capillary refill <2 sec, No murmur Gastrointestinal Exam: soft, normal bowel sounds, tenderness ( mild left abdominal tenderness to palpation without guarding or rebound) Back Exam: CVA tenderness ( moderate left CVA tenderness palpation) Extremity Exam: normal inspection, normal range of motion Neurologic Exam: alert, oriented x 3, cooperative, nursing tech II-XII nml as tested, normal mood/affect, nml cerebellar function, nml station & gait, sensation nml, No motor deficits, No sensory deficit Skin Exam: normal color, warm, dry Lymphatic Exam: No adenopathy SpO2 Interpretation: normal SpO2: 97 O2 Delivery: Room Air - Course Nursing assessment & vital signs reviewed: Yes - CT Exams Abdomen/Pelvis CT Interpretation: Discussed w/radiologist (CT of the abdomen pelvis without contrast 2 nonobstructing left renal calculi but no acute findings.) Ordered Tests: Active Orders 24 hr Category Date Time Status ABDOMEN AND PELVIS W/0 CONTRAS [CT] Stat Exams 09/18/23 18:03 Taken HCG QUALITATIVE, URINE Stat Lab 09/18/23 17:23 Completed UA W/RFX UR CULTURE Stat Lab 09/18/23 17:23 Completed Medication Summary Discontinued Medications Generic Name Dose Route Start Last Admin Trade Name Freq PRN Reason Stop Dose Admin Ketorolac Tromethamine 30 mg 09/18/23 16:51 09/18/23 17:15 Ketorolac Tromethamine 30 Mg/Ml Inj IM 09/18/23 16:52 30 mg STAT ONE Administration Ketorolac Tromethamine Confirm 09/18/23 17:11 Ketorolac Tromethamine 30 Mg/Ml Inj Administered 09/18/23 17:12 Dose 30 mg .ROUTE .STK-MED ONE Lab/Rad Data: Laboratory Results 09/18/23 09/18/23 Range/Units 17:23 17:23 Urine Color Yellow (Yellow) Urine Appearance Clear (Clear) Urine pH 7.0 (4.6-8.0) Ur Specific [place] 1.015 (1.005-1.030) Urine Protein Negative (Negative) Urine Glucose (UA) Negative (Negative) mg/dL Urine Ketones Negative (Negative) Urine Blood Negative (Negative) Urine Nitrite Negative (Negative) Urine Bilirubin Negative (Negative) Urine Urobilinogen 1.0 A (0.2) mg/dL Ur Leukocyte Esterase Trace A (Negative) U Hyaline Cast (Auto) NONE SEEN (0-2) /LPF Urine Microscopic RBC 0-2 (0-5) /HPF Urine Microscopic WBC 0-2 (0-5) /HPF Ur Epithelial Cells Rare (None Seen) /HPF Urine Bacteria None Seen (None Seen) /HPF Urine Culture Reflexed NO (NO) Urine HCG, Qual NEGATIVE (NEGATIVE) - Progress Progress: improved Progress Note: 09/18/23 22:53 Nursing note and vital signs reviewed. No further housing insecurity noted. All lab results thoroughly reviewed and shared with patient/. CT of abdomen pelvis without contrast results are reviewed and shared with patient/. 09/18/23 22:53 Patient given 30 g IM Toradol with marked improvement in pain. 09/18/23 22:54 Pain most likely musculoskeletal in nature as there is no evidence of acute UTI or uterolithiasis at this time. Discharged in stable condition with prescription for Toradol 10 mg p.o. 3 times daily as needed for pain and also Norflex 100 g p.o. twice daily as needed electronically sent to patient's pharmacy. Advised to follow-up with her PCP and return to ER for increasing pain or temperature greater 100.5. There were no alarming symptoms of fever, injury, incontinence of stool/urine, recent epidural injection, or IV drug abuse. Counseled pt/family regarding: lab results, diagnosis, need for follow-up, rad results Medical Desision Making - Independent Historian Additional History obtained from: Spouse - Diagnostic Testing Diagnostic test were ordered, analyzed, and reviewed by me: Yes Radiological Interpretation: Reviewed by me - Risk of complications The pt has a mod risk of morbidity or mortality based on: Need for prescription drug management - Departure Departure Disposition: Home Clinical Impression: Lumbar pain Condition: Stable Critical Care Time: No Referrals: LISHA CALLEJAS [Primary Care Provider] - Follow up/PCP as directed Instructions: Low Back Pain (DC) Additional Instructions: Rest Heat Massage Norflex twice a day as needed for pain and also Toradol twice a day as needed for pain Follow-up with your family MD return to the ER as needed Prescriptions: Orphenadrine Citrate 100 mg [Norflex 100 MG Tablet] 100 mg PO BID PRN PRN #10 tab PRN Reason: Pain Ketorolac Trometh 10 mg Tab [TORAdol 10 MG TABLET] 10 mg PO TID PRN #10 tablet PRN Reason: Pain
[2023-09-18] MEDS ORDERED: TORAdol 30 mg Injection ONE (17:11)
[2023-09-18] MEDS: TORAdol 30 mg Injection IM ONE (17:15)
[2023-09-18 17:54] LABS: HCG URINE TEST NEGATIVE (NEGATIVE)
[2023-09-18 17:58] LABS: Appearance Clear (Clear); Bacteria None Seen /HPF (None Seen); Bilirubin Negative (Negative); Blood Negative (Negative); Epithelial Cells Rare /HPF (None Seen); Glucose, Urine Negative (Negative); Hyaline Casts NONE SEEN /LPF (0-2); Ketones Negative (Negative); Leukocyte Esterase Trace (Negative); Nitrite Negative (Negative); Protein,Urine Dip Negative (Negative); RBC 0-2 /HPF (0-5); Specific Gravity 1.015 (1.005-1.030); WBC 0-2 /HPF (0-5)
[2023-09-18 18:00] LABS: ADD URINE CULTURE? NO (NO)
[2023-09-18 19:54] VITALS: PULSE 69
[2023-09-18 20:05] VITALS: O2SAT 97
[2023-09-18 20:16] VITALS: BP 147/71; RESP 17
--- NOTE | 2023-09-19 08:59 | XRAY ---
Indication: Left costovertebral angle pain. Multiple contiguous axial images obtained through the abdomen and pelvis without contrast using renal stone protocol. Comparison: June 30, 2022. Lung bases demonstrates mild bilateral dependent atelectasis. Stable tiny bibasilar noncalcified micronodules again largest right posterior gutter favored to be benign given stability. Heart is not enlarged. Left kidney again demonstrates 2 nonobstructing micro-calculi, largest 7-8mm. No other renal calculus or evidence for obstructive uropathy in either system. Noncontrasted stomach and bowel loops appear nonobstructed again with appendectomy. Interval cholecystectomy. No free fluid/air. Remaining liver, pancreas, spleen, adrenal glands, kidneys, ureters, bladder, and uterus are unremarkable for noncontrast exam. Minimal aortoiliac calcifications without AAA. Osseous structures intact with minimal degenerative changes throughout the spine. New small midline epigastric ventral hernia with small herniated omental fat. Impression: 1. Again nonobstructed left renal micro-calculi. 2. New epigastric fatty ventral hernia. 3. Again chronic findings including probable benign bibasilar noncalcified pulmonary micronodules, arteriosclerotic disease, and degenerative spondylosis.
== END 2023-09-18 20:21 | disposition home or self-care (01) ==
LOC: ED 16:31
DX: M54.50 Low back pain, unspecified (principal); R10.9 Unspecified abdominal pain; I11.0 Hypertensive heart disease with heart failure; I50.9 Heart failure, unspecified; Z79.899 Other long term (current) drug therapy
CPT/HCPCS: 74176; 81001; 81025; 96372; 99284; J1885